=== PATIENT | male | born 1985 ===

== ENCOUNTER 2020-11-02 14:25 | Outpatient (REF) | payer OTHER, SELFPAY | END 2020-11-02 14:26 | disposition home or self-care (01) | LOC: HO.LAB 14:25 | PROVIDERS: Visit Provider Internal Medicine | DX: Z20.828 Contact with and (suspected) exposure to other viral communicable diseases (principal) | CPT/HCPCS: C9803; U0003 ==

== ENCOUNTER 2021-03-30 09:42 | Emergency (ER) | payer MEDICAID, SELFPAY ==
[2021-03-30 09:55] VITALS: BP 127/94; PULSE 97; RESP 16; TEMP 36.7; O2SAT 97; BMI 34.3
--- NOTE | 2021-03-30 10:23 | ED.WOUNDLAC ---
HPI - Wound/Laceration General Chief Complaint: Wound/Laceration <BRIGIDO Dowling Last Filed: 03/30/21 10:29> Stated Complaint: TOENAIL INJ <BRIGIDO Dowling Last Filed: 03/30/21 10:29> Time Seen by Provider: 03/30/21 10:23 <BRIGIDO Dowling Last Filed: 03/30/21 10:29> Source: patient <BRIGIDO Dowling Last Filed: 03/30/21 10:29> Mode of arrival: ambulatory <BRIGIDO Dowling Last Filed: 03/30/21 10:29> History of Present Illness HPI narrative: 35-year-old male with no significant past medical history presents to the ED complaining of right great toe pain s/p trimming ingrown toenail on Monday. States it is painful to wear shoes/sneakers. Denies fever, chills, numbness, tingling, drainage from area, erythema <BRIGIDO Dowling Last Filed: 03/30/21 10:29> Onset (ago): day(s) <BRIGIDO Dowling Last Filed: 03/30/21 10:29> Related Data Allergies/Adverse Reactions: Allergies Allergy/AdvReac Type Severity Reaction Status Date / Time No Known Allergies Allergy Unverified 07/30/20 18:25 <BRIGIDO Dowling Last Filed: 03/30/21 10:29> Review of Systems Review of Systems: Constitutional: No Fever, No Chillsn Musculoskeletal: No joint pain, No Myalgias, No Joint Swelling Skin: + Skin Lesions, No rash Neuro: No Weakness, No Numbness, No Paresthesias <BRIGIDO Dowling Last Filed: 03/30/21 10:29> Yes all other systems are reviewed and are negative <BRIGIDO Dowling Last Filed: 03/30/21 10:29> [facility] Past Medical History Attestation statement: The following information was validated with the patient. <BRIGIDO Dowling Last Filed: 03/30/21 10:29> Medical History: Medical History (Updated 03/31/21 @ 00:01 by Carolina Ashton) No known health problems <BRIGIDO Dowling - Last Filed: 03/30/21 10:29> Social History Social History: Social History Smoked in Last 30 Days: No Use of substances other than those prescribed or required for medical reasons: No Advance Directives: No Advance Directives Information Provided: No <BRIGIDO Dowling - Last Filed: 03/30/21 10:29> Physical Exam Vital Signs: Vital Signs: Last Vital Signs Temp 98.1 F 03/30/21 09:55 Pulse 97 03/30/21 09:55 Resp 16 03/30/21 09:55 BP 127/94 H 03/30/21 09:55 Pulse Ox 97 03/30/21 09:55 Body Mass Index 34.3 <BRIGIDO Dowling - Last Filed: 03/30/21 10:29> Vital Signs: Last Vital Signs Temp 98.1 F 03/30/21 09:55 Pulse 97 03/30/21 09:55 Resp 16 03/30/21 09:55 BP 127/94 H 03/30/21 09:55 Pulse Ox 97 03/30/21 09:55 Body Mass Index 34.3 <Fabio Gudino MD - Last Filed: 04/23/21 15:36> Const: General: cooperative, healthy appearing and comfortable <BRIGIDO Dowling - Last Filed: 03/30/21 10:29> Orientation/consciousness: patient oriented x3 <BRIGIDO Dowling - Last Filed: 03/30/21 10:29> Limitations: no limitations <BRIGIDO Dowling - Last Filed: 03/30/21 10:29> HENMT: Head: Yes normal to inspection <BRIGIDO Dowling - Last Filed: 03/30/21 10:29> Ears: hearing grossly normal bilaterally <BRIGIDO Dowling - Last Filed: 03/30/21 10:29> General nose exam: Normal external nose present <BRIGIDO Dowling - Last Filed: 03/30/21 10:29> Face and sinus: Yes normal facial exam <BRIGIDO Dowling - Last Filed: 03/30/21 10:29> Eyes: General: appearance normal, both eyes and all related structures <BRIGIDO Dowling - Last Filed: 05/18/21 10:29> EOM: EOMs intact bilaterally <BRIGIDO Dowling - Last Filed: 03/30/21 10:29> Neck: Neck: Yes normal visual inspection <BRIGIDO Dowling - Last Filed: 03/30/21 10:29> Resp: Effort & Inspection: normal respiratory effort <BRIGIDO Dowling - Last Filed: 03/30/21 10:29> Cardio: Rate: regular rate <BRIGIDO Dowling - Last Filed: 03/30/21 10:29> Heart sounds: S1 normal heart sound present and S2 normal heart sound present <BRIGIDO Dowling - Last Filed: 03/30/21 10:29> Peripheral pulses: dorsalis pedis present <BRIGIDO Dowling - Last Filed: 03/30/21 10:29> Skin: Rashes: no rashes <BRIGIDO Dowling - Last Filed: 03/30/21 10:29> Neuro: General: patient oriented x3 <BRIGIDO Dowling - Last Filed: 03/30/21 10:29> Gait exam (Neuro): Normal gait present <BIRGIDO Dowling - Last Filed: 03/30/21 10:29> Extrem: Other: Right great toe with partially removed toenail. Mild swelling. No erythema, no fluctuance/induration, no streaking. +ttp. FROM/NV intact <BRIGIDO Dowling - Last Filed: 03/30/21 10:29> Course Course Course Narrative: I have reviewed the chart <Fabio Gudino MD - Last Filed: 04/23/21 15:36> MDM - Wound/Laceration MDM Narrative Medical decision making narrative: On exam VSS, NAD/well-appearing, physical exam consistent with partially removed toenail, no evidence of active infection. Discussed with patient wound protection/wearing open-toed shoes. He is requesting work no due to necessity wearing sneakers. <BRIGIDO Dowling - Last Filed: 03/30/21 10:29> Discharge Plan Discharge Clinical Impression: Ingrowing toenail <BRIGIDO Dowling Last Filed: 03/30/21 10:29> Patient Disposition: Home, Self-Care <BRIGIDO Dowling - Last Filed: 03/30/21 10:29> Instructions: Partial Nail Avulsion for Ingrown Nail (DC) <BRIGIDO Dowling - Last Filed: 03/30/21 10:29> Additional Instructions: Protect your toe from damage/infection. Wear open-toed shoes. Apply bacitracin or Neosporin at. If area begins look infected, is red, begins to pass or have drainage or you have fever return to the ED immediately. 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 Use zapatos abiertos. Aplique bacitracina o Neosporin en. Si el ?lizzeth comienza a verse infectada, est? enrojecida, comienza a pasar o tiene secreci?n o si tiene fiebre, regrese al servicio de urgencias de inmediato. Deber?as un pod?logo <BRIGIDO Dowling - Last Filed: 03/30/21 10:29> Referrals: Jose J Bess [Physician] - 1 week <BRIGIDO Dowling - Last Filed: 03/30/21 10:29> Stand Alone Forms: Work/School Release <BRIGIDO Dowling - Last Filed: 03/30/21 10:29> Interventions: ED Discharge Assessment Last Done: 03/30/21 10:50 <BRIGIDO Dowling - Last Filed: 03/30/21 10:29> Discharge Date/Time: 03/30/21 10:51 <BRIGIDO Dowling - Last Filed: 03/30/21 10:29>
== END 2021-03-30 10:51 | disposition home or self-care (01) ==
PROVIDERS: Emergency Provider Emergency Medicine
DX: L60.0 Ingrowing nail (principal); M79.674 Pain in right toe(s)
CPT/HCPCS: 99283

== ENCOUNTER 2021-06-15 06:05 | Emergency (ER) | payer MEDICAID, SELFPAY ==
[2021-06-15 06:27] VITALS: BP 116/74; PULSE 59; RESP 16; TEMP 36.6; O2SAT 96; BMI 36.0
--- NOTE | 2021-06-15 06:38 | ED.EYEPROB ---
HPI - Eye Problem General Chief complaint: Eye Problems Stated complaint: eye issue Time Seen by Provider: 06/15/21 06:38 Source: patient Mode of arrival: ambulatory Limitations: no limitations History of Present Illness chief complaint: eye redness Onset (ago): day(s) (2) Onset description: gradual Duration: constant Location: right eye and left eye Eye Symptoms: redness, itching and discharge Place: home Mechanism: none Severity: moderate If Pain, Quality: other Associated symptoms: none Treatments Prior to Arrival: none Related Data Previous Rx's Medication Instructions Recorded erythromycin 5 mg/gram (0.5 %) eye 0.5 inch OPHTHALMIC (EYE) BID 7 06/15/21 ointment Days #3.5 g Allergies Allergy/AdvReac Type Severity Reaction Status Date / Time No Known Allergies Allergy Unverified 07/30/20 18:25 Review of Systems Review of Systems: Constitutional : No Fever, No Chills, HEENT: red eyes, drainage from eyes Cardiovascular : No Chest Pain, No SOB Respiratory : No Dyspnea Gastrointestinal : No abdominal pain Musculoskeletal : No Joint Swelling Skin : No rash, no skin laceration Neuro : No Weakness, No Numbness PMFSH Past Medical History Attestation statement: The following information was validated with the patient. Medical History No known health problems Social History Social History (Updated 06/15/21 @ 07:03 by Elena Wilkins DO) Patient Tobacco Use Status: Never used Tobacco Advance Directives: No Physical Exam Vital Signs: Vital Signs: Last Vital Signs Temp 97.9 F 06/15/21 06:27 Pulse 59 06/15/21 06:27 Resp 16 06/15/21 06:27 BP 116/74 06/15/21 06:27 Pulse Ox 96 06/15/21 06:27 Body Mass Index 36.0 Appearance: Alert. Oriented X3. No acute distress. Eyes: Pupils equal, round and reactive to light. injected conjunctiva with yellow dranaige, no change in vision ENT: Pharynx normal. Neck: Normal inspection. Neck supple. CVS: Normal heart rate and rhythm. Pulses normal. Respiratory: No respiratory distress. Breath sounds normal. Abdomen: Soft and nontender. Skin: Skin warm and dry. Normal skin color. Normal skin turgor. Extremities: No lower extremity edema. No calf ttp Neuro: Oriented X 3. No motor deficit. No sensory deficit. MDM - Eye Problem MDM Narrative Medical decision making narrative: 35 yo male otherwise healthy here with red eyes, drainage, no change in vision no contact lens will treat for bacterial conjunctivitis Discharge Plan Discharge Clinical Impression: Bacterial conjunctivitis Patient Disposition: Home, Self-Care Instructions: Conjunctivitis (ED) Additional Instructions: return to ED for any worsening symptoms or concerns Prescriptions: New erythromycin 5 mg/gram (0.5 %) ointment 0.5 inch ophthalmic (eye) BID 7 Days Qty: 3.5 RF: 0 Referrals: Physician,None [Primary Care Provider] - 2 days (if not better) Stand Alone Forms: Work/School Release
[2021-06-15] MEDS: Erythromycin Base 0.5% Oph Oin 1 GM TUBE 1 CM EYE-BOTH (07:08)
== END 2021-06-15 07:09 | disposition home or self-care (01) ==
PROVIDERS: Emergency Provider Emergency Medicine
DX: H10.12 Acute atopic conjunctivitis, left eye (principal); H57.12 Ocular pain, left eye
CPT/HCPCS: 99282; 99283

== ENCOUNTER 2021-11-11 12:18 | Outpatient (REF) | payer MEDICAID, SELFPAY | END 2021-11-11 12:19 | disposition home or self-care (01) | LOC: HO.LAB 12:18 | PROVIDERS: Visit Provider Internal Medicine | DX: Z13.89 Encounter for screening for other disorder (principal) ==

== ENCOUNTER 2021-11-12 08:28 | Outpatient (REF) | payer MEDICAID, SELFPAY ==
[2021-11-12 09:43] LABS: Binax Internal Control QC Valid; Binax Lot number: 9864; Binax Now Covid-19 Ag Negative (Negative)
== END 2021-11-12 08:29 | disposition home or self-care (01) ==
LOC: HO.LAB 08:28
PROVIDERS: Visit Provider Internal Medicine
DX: Z20.822 Contact with and (suspected) exposure to COVID-19 (principal)
CPT/HCPCS: 36415; C9803

== ENCOUNTER 2021-11-18 10:58 | Emergency (ER) | payer MEDICAID, SELFPAY ==
--- NOTE | ~2021-11-18 | XR_ITS ---
EXAMINATION: XR CHEST CLINICAL INFORMATION: Cough and pain COMPARISON: None TECHNIQUE: Frontal view of the chest was obtained. FINDINGS: The lungs are hypoexpanded but clear of acute process. The heart size and pulmonary vascularity is normal. There is mild dextroscoliosis mid dorsal spine. No lytic process. XR/XR chest 1V IMPRESSION: Hypoexpanded lungs are clear.
[2021-11-18 11:07] VITALS: BP 141/94; PULSE 88; RESP 19; TEMP 36.6; O2SAT 97; BMI 37.8
--- NOTE | 2021-11-18 11:26 | ED.GENADULT ---
HPI - General Adult General Chief complaint: Upper Respiratory Symptoms Stated complaint: infection in lungs SOB chest pain Time Seen by Provider: 11/18/21 11:25 Source: patient Limitations: no limitations History of Present Illness HPI narrative: Patient presents to the ER with complaints of cough congestion headache body aches x1 week. Patient's recent COVID-19 test was negative in the past. Pain in the chest increased with coughing. Cough is nonproductive. Positive COVID-19 exposure at work. Patient is fully vaccinated for COVID-19. Patient has not been boosted. Patient states slight cough and chest wall pain. Symptoms are [id number]. Patient denies tobacco history takes no prescribed medication has been taking [id number] Motrin for headache at home. Related Data Previous Rx's Medication Instructions Recorded erythromycin 5 mg/gram (0.5 %) eye 0.5 inch OPHTHALMIC (EYE) BID 7 06/15/21 ointment Days #3.5 g albuterol sulfate 90 mcg/actuation 2 puff INHALATION Q6H PRN #6.7 g 11/18/21 aerosol inhaler (ProAir HFA) Allergies Allergy/AdvReac Type Severity Reaction Status Date / Time No Known Allergies Allergy Unverified 07/30/20 18:25 Review of Systems Constitutional: Constitutional: Reports body ache(s), Denies chills, Reports fatigue, Denies fever(s), Reports headache(s) and Denies weakness ENT: Reports headache(s), Reports nasal congestion and Reports sore throat Cardiovascular: Cardiovascular: Reports chest pain and Reports dyspnea Respiratory: Respiratory: Reports chest congestion, Reports cough, Reports pain with cough and Reports dyspnea Gastrointestinal: Gastrointestinal: Denies diarrhea, Denies nausea and Denies vomiting Musculoskeletal: Musculoskeletal: Denies back pain Neurologic: Reports headache(s) and Denies weakness Endocrine: Endocrine: Reports fatigue PMFSH Past Medical History Attestation statement: The following information was validated with the patient. Medical History No known health problems Social History Social History Patient Tobacco Use Status: Never used Tobacco Advance Directives: No Advance Directives Information Provided: No Physical Exam Vital Signs: Vital Signs: Last Vital Signs Temp 98 F 11/18/21 11:07 Pulse 88 11/18/21 11:07 Resp 19 11/18/21 11:07 BP 141/94 H 11/18/21 11:07 Pulse Ox 97 11/18/21 11:07 BMI result Body Mass Index 37.8 vital signs have been reviewed as normal and appeared to be correct. Blood pressure normal. Heart rate normal. Respiration rate normal. Temperature normal. Oxygen saturation normal. Appearance: Alert. Oriented X3. No acute distress. Head: Normal external exam. Normocephalic. Atraumatic. Eyes: PERRLA. EOMI. Conjunctiva and sclera normal. Eyelids normal. ENT: Pharynx normal. Uvula midline. Moist mucous membranes. No evidence of peritonsillar abscess Neck: Soft full range of motion CVS: Heart regular rate and rhythm no murmurs and rubs Respiratory: Breath sounds are clear to auscultation bilaterally. No accessory muscle use noted. Positive chest wall tenderness Back: Full range of motion noted. Skin: Skin warm and dry. Normal skin color. No rashes no ecchymosis Extremities: No lower extremity edema. Bilateral calves nontender Neuro: Oriented X 3. No motor deficit. No sensory deficit. No focal deficit Course Course Course Narrative: Viral URI COVID-19 Pneumonia Acute bronchitis Pharyngitis Patient's O2 sat is 97% on room air chest x-ray COVID-19 swab pending Medical Decision Making Lab Data Labs: Lab Results 11/18/21 Range/Units 11:22 COVID-19 (DONNA) Negative (Negative) COVID-19 Clin Com See Note Imaging Data Chest x-ray: Radiologist's impression: [place] [id number] XRay Report Signed Patient: Eddie Lee MR#: [id number] : 1985 Acct:[id number] Age/Sex: 35 / M ADM Date: 11/18/21 Loc: HO.ED Attending Dr: Ordering Physician: Eddie Kruse Date of Service: 11/18/21 Procedure(s): XR chest 1V Accession Number(s): [id number] cc: Eddie Kruse ~ EXAMINATION: XR CHEST CLINICAL INFORMATION: Cough and pain COMPARISON: None TECHNIQUE: Frontal view of the chest was obtained. FINDINGS: The lungs are hypoexpanded but clear of acute process. The heart size and pulmonary vascularity is normal. There is mild dextroscoliosis mid dorsal spine. No lytic process. XR/XR chest 1V IMPRESSION: Hypoexpanded lungs are clear. ? Dictated By: Galo Cheng MD Signed By: <Electronically signed by Galo Cheng MD in OV> 11/18/21 1150 DD/ 1140 TD/TT:? 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: [facility] Discharge Plan Discharge Clinical Impression: Upper respiratory infection Qualifiers: URI type: unspecified viral URI Qualified Code(s): J06.9 - Acute upper respiratory infection, unspecified Patient Disposition: Home, Self-Care Instructions: Upper Respiratory Infection (ED) Additional Instructions: COVID-19 test is negative Chest x-ray is negative Your oxygenation levels normal Prescriptions: New albuterol sulfate [ProAir HFA] 90 mcg/actuation HFA aerosol inhaler 2 puff inhalation Q6H PRN (Reason: shortness of breath or wheezing) Qty: 6.7 RF: 0 No Action erythromycin 5 mg/gram (0.5 %) ointment 0.5 inch ophthalmic (eye) BID 7 Days Qty: 3.5 RF: 0 Stand Alone Forms: Work/School Release Interventions: ED Discharge Assessment Last Done: 11/18/21 12:25 Discharge Date/Time: 11/18/21 12:30 Print Language: Faroese
[2021-11-18 11:50] LABS: COVID-19 Test Negative (Negative)
== END 2021-11-18 12:30 | disposition home or self-care (01) ==
PROVIDERS: Physician Assistant; Emergency Provider Emergency Medicine
DX: J06.9 Acute upper respiratory infection, unspecified (principal); Z20.822 Contact with and (suspected) exposure to COVID-19
CPT/HCPCS: 71045; 87635; 99283

== ENCOUNTER 2022-07-25 06:47 | Emergency (ER) | payer MEDICAID, SELFPAY ==
--- NOTE | ~2022-07-25 | XR_ITS ---
EXAMINATION: XR THORACIC SPINE CLINICAL INFORMATION: Mid back pain with history of back injuries COMPARISON: 08/27/2019 TECHNIQUE: AP, lateral, and swimmer's views of the thoracic spine. FINDINGS: S-shaped thoracolumbar rotoscoliosis, worsened since CT 08/27/2019. Normal sagittal alignment. Mild multilevel degenerative disc disease manifested by endplate sclerosis and anterior osteophytosis. Evaluation of the vertebral bodies is limited by body habitus but no gross compression fracture is seen. XR/XR thoracic spine 2V IMPRESSION: Degenerative changes as described above. No acute vertebral body compression fracture. If there is high suspicion for acute traumatic injury, consider cross-sectional imaging.
[2022-07-25 07:15] VITALS: BP 117/81; PULSE 74; RESP 16; TEMP 36.6; O2SAT 98; BMI 36.0
--- NOTE | 2022-07-25 08:50 | ED_ITS ---
HPI - Back Pain/Injury General Chief Complaint: Back Pain/Injury Stated Complaint: back pain Time Seen by Provider: 07/25/22 08:37 Source: patient, family () and certified court interpreter Mode of arrival: ambulatory Limitations: no limitations History of Present Illness HPI Narrative: 36 year old male Yakut-speaking came in for evaluation of mid back pain. Patient with history of work-related back injury 8 years ago since then patient has been getting midback pain, described pain as dull aching pain in the midback on and off for the past 8 years exacerbated mostly by physical activity, NSAIDs help patient's pain but he cannot take it because it irritated stomach. Patient work where he must left and bend. Patient otherwise declined fever or chills, no urinary or stool incontinence. Related Data Previous Rx's Medication Instructions Recorded erythromycin 5 mg/gram (0.5 %) eye 0.5 inch ophthalmic (eye) BID 7 06/15/21 ointment days #3.5 grams albuterol sulfate 90 mcg/actuation 2 puff inhalation Q6H PRN 11/18/21 aerosol inhaler (ProAir HFA) shortness of breath or wheezing #6.7 grams Allergies Allergy/AdvReac Type Severity Reaction Status Date / Time No Known Allergies Allergy Unverified 07/30/20 18:25 Review of Systems Review of Systems: All other systems are reviewed and are negative Constitutional: Reports as per HPI and Reports no additional constitutional complaints Eyes: Reports as per HPI and Reports no additional eye complaints Reports system reviewed and no additional complaints, except as documented Cardiovascular: Reports as per HPI and Reports no additional cardiovascular complaints Respiratory: Reports as per HPI and Reports no additional respiratory complaints Gastrointestinal: Reports as per HPI and Reports no additional gastrointestinal complaints Genitourinary: Reports no additional female genitourinary complaints Musculoskeletal: Reports no additional musculoskeletal complaints Skin/Breast: Reports system reviewed and no additional complaints, except as docu Psychiatric: Reports no additional psychiatric complaints Endocrine: Reports no additional endocrine complaints Hematologic/Lymphatic: Reports no additional hematologic/lymphatic complaints Allergic/Immunologic: Reports no additional allergic/immunologic complaints Reports system reviewed and no additional complaints, except as documented and Reports Abnormal speech present PMFSH Past Medical History Medical History No known health problems Social History Social History Patient Tobacco Use Status: Never used Tobacco Advance Directives: No Advance Directives Information Provided: No Physical Exam 2 Vital Signs: Vital Signs: Last Vital Signs Temp 98 F 07/25/22 07:15 Pulse 74 07/25/22 07:15 Resp 16 07/25/22 07:15 BP 117/81 07/25/22 07:15 Pulse Ox 98 07/25/22 07:15 O2 Del Method 07/25/22 07:15 BMI result Body Mass Index 36.0 Vital signs have been reviewed as appeared to be correct. Blood pressure normal. Heart rate normal. Respiration rate normal. Temperature normal. Oxygen saturation normal. Appearance: Alert. Oriented X3. No acute distress. Head: Normal external exam. Normocephalic. Atraumatic. No Cason signs noted. No raccoon eyes noted Eyes: PERRLA. EOMI. Conjunctiva and sclera normal. Eyelids normal. ENT: TM's Normal. Pharynx normal. Uvula midline. Moist mucous membranes. No trismus noted. No drooling noted. No muffled voice noted. Neck: Normal inspection. Neck supple. FROM. No adenopathy. Thyroid Normal. No meningeal signs. No neck mass noted. CVS: Normal heart rate and rhythm. Heart sound normal. No murmurs noted. Pulses normal throughout. Respiratory: No respiratory distress. Painless inspiration. Breath sounds normal. No wheezes/rales/rhonchi noted. Chest nontender. No accessory muscle usage noted or decreased air movement noted. Abdomen: Soft and nontender. Bowel sounds normal in all 4 quadrants. No distention noted. No organomegaly noted. No visible injury noted. Back: No CVA tenderness. Full range of motion noted. No reproducible point of tenderness on the spine. Skin: Skin warm and dry. Normal skin color. Normal skin turgor. No rashes/lesions/lacerations noted. Extremities: No lower extremity edema. Extremities exhibit normal range of motion. Extremities nontender. Neuro: Oriented X 3. Cranial nerve exam: II-XII are grossly intact No motor deficit. No sensory deficit. Reflexes normal. Course Course Course Narrative: 36-year-old male with old work related back injury came in with acute on chronic back pain, x-ray showing no acute injury, patient feels better with oxycodone. As discussed with the patient to rest for 3-4 days and refrain from bending or heavy lifting, patient need to follow up with PCP to consider long-term plan. MDM - Back Pain/Injury Imaging Data Thoracic x-ray: Attestation: I personally reviewed and interpreted this imaging study as follows: Radiologist's impression: Degenerative changes as described above. No acute vertebral body compression fracture. If there is high suspicion for acute traumatic injury, consider cross-sectional imaging.? Discharge Plan Discharge Clinical Impression: Thoracic back pain Patient Disposition: Home, Self-Care Instructions: Thoracic Pain (ED) Additional Instructions: Take Tylenol ([id number] medication) 500 mg tablet every 6 hours if needed for pain. avoid heavy lifting, bending, pushing. Apply heating pad to the tender area. Prescriptions: No Action erythromycin 5 mg/gram (0.5 %) ointment 0.5 inch ophthalmic (eye) BID 7 Days Qty: 3.5 0RF albuterol sulfate [ProAir HFA] 90 mcg/actuation HFA aerosol inhaler 2 puff inhalation Q6H PRN (Reason: shortness of breath or wheezing) Qty: 6.7 0RF Referrals: [facility] [Primary Care Provider] - Stand Alone Forms: Work/School Release
[2022-07-25] MEDS: oxyCODONE HCl Immed Release 5 MG TABLET PO (08:59)
== END 2022-07-25 11:21 | disposition home or self-care (01) ==
PROVIDERS: Emergency Provider Emergency Medicine
DX: M54.6 Pain in thoracic spine (principal)
CPT/HCPCS: 72070; 99283

== ENCOUNTER 2023-06-04 14:33 | Emergency (ER) | payer OTHER, SELFPAY ==
[2023-06-04 14:56] VITALS: BP 138/88; PULSE 82; RESP 18; TEMP 36.8; O2SAT 94; BMI 36.9
--- NOTE | 2023-06-04 14:56 | ED_ITS ---
HPI - Back Pain/Injury General Chief Complaint: Back Pain/Injury Stated Complaint: back pain Time Seen by Provider: 06/04/23 18:39 Source: patient Mode of arrival: ambulatory Limitations: no limitations History of Present Illness HPI Narrative: Patient is a 37-year-old male presents emergency department for evaluation of acute on chronic pain to the mid/lower back. States that he was moving a washing machine at 10:00 resulting in exacerbation of pain. Denies recent precipitating injury, fevers, chills, burning with micturition, urinary frequency/urgency/hesitancy, bladder or bowel dysfunction, numbness or tingling of the arms, perineum or bilateral legs. Denies any recent surgical procedures, any known immune compromising conditions, personal history of cancer, or IV drug usage. MD elicited complaint: back pain Related Data Previous Rx's Medication Instructions Recorded erythromycin 5 mg/gram (0.5 %) eye 0.5 inch ophthalmic (eye) BID 7 06/15/21 ointment days #3.5 grams albuterol sulfate 90 mcg/actuation 2 puff inhalation Q6H PRN 11/18/21 aerosol inhaler (ProAir HFA) shortness of breath or wheezing #6.7 grams oxycodone 5 mg tablet 5 mg PO Q8H PRN pain #10 tabs 07/25/22 cyclobenzaprine 10 mg tablet 10 mg PO TID PRN muscle spasm #14 06/04/23 tabs ketorolac 10 mg tablet 10 mg PO TID PRN pain 5 days #15 06/04/23 tabs Allergies Allergy/AdvReac Type Severity Reaction Status Date / Time No Known Allergies Allergy Unverified 07/30/20 18:25 Review of Systems Review of Systems: Constitutional: No weight loss, fever, chills, weakness or fatigue. HEENT: No visual loss, blurred vision, double vision. No hearing loss, sneezing, congestion, runny nose or sore throat. Skin: No rash or itching. Cardiovascular: No chest pain, chest pressure or chest discomfort. No palpitations or pedal edema. Respiratory: No shortness of breath, cough or sputum production. Gastrointestinal: No anorexia, nausea, vomiting or diarrhea. No abdominal pain or blood in stool. Genitourinary: No burning micturition. No urinary frequency or incontinence. Neurologic: No headache, dizziness, syncope, unilateral weakness, ataxia, numbness or tingling in the extremities. No change in bowel or bladder control. Musculoskeletal: + Back pain as noted in HPI. No joint pain or stiffness. Hematologic: No bleeding or bruising. Lymphatics: No enlarged lymph nodes. Psychiatric:No depression or anxiety. Endocrine: No reports of sweating. No cold or heat intolerance. No polyuria or polydipsia. Yes all other systems are reviewed and are negative PMFSH Past Medical History Attestation statement: The following information was validated with the patient. Source: old records reviewed Medical History No known health problems Social History Social History Patient Tobacco Use Status: Never used Tobacco Advance Directives: No Advance Directives Information Provided: No Physical Exam Vital Signs: Vital Signs: Last Vital Signs Temp 98.2 F 06/04/23 14:56 Pulse 82 06/04/23 14:56 Resp 18 06/04/23 14:56 BP 138/88 06/04/23 14:56 Pulse Ox 94 06/04/23 14:56 O2 Del Method Room Air 06/04/23 14:56 BMI result Body Mass Index 36.9 Appearance: Alert.?Oriented to person, place and time. No acute distress.?Normal affect. Eyes: Pupils equal, round and reactive to light.? ENT: Pharynx normal.?? Neck: Normal inspection.? Neck supple.?? CVS: Heart sounds normal. Normal heart rate and rhythm.? Pulses normal; bilateral radial pulses 2+, bilateral posterior tibial/dorsalis pedis pulses 2+.? Respiratory: No respiratory distress.? Lung sounds clear to auscultation bilaterally?? Abdomen: Soft and non-tender. Normoactive bowel sounds. No pulsatile mass.?? Skin: Skin warm and dry.? Normal skin color.? Extremities: No lower extremity edema.? No calf ttp? Back: + mild paraspinal muscular tenderness from thoracic region to upper lumbar region. No CVA tenderness. No midline spinal tenderness, step-off's, or deformity. Full ROM intact in bilateral upper and lower extremities. No rashes, lesions, areas of induration or fluctuance, or signs of infection noted. Neuro: Moves all extremities spontaneously. Sensation to light touch intact bilaterally. No ataxia, gait normal and steady.. No focal neuro deficits. Medications Administered Discontinued Medications Generic Name Dose Route Start Last Admin Trade Name Jerry PRN Reason Stop Dose Admin Ketorolac Tromethamine 30 mg 06/04/23 14:59 06/04/23 15:04 Ketorolac Tromethamine 30 Mg/Ml Vial IM 06/04/23 15:00 30 mg ONCE ONE Administration Medical Decision Making Medical Decision Making [facility] Narrative: Patient is a 37-year-old male presents emergency department for evaluation of acute on chronic thoracic pain. He received injection during a medical examination with improvement in pain, though not complete resolution. There are no focal neurological deficits. Pain is most consistent with chronic degenerative changes in addition to muscular pain with injury today, although cannot completely exclude herniated disc. There is no midline spinal tenderness, step-off, deformity. Not consistent with spinal fracture, spinal infection, epidural abscess, AAA, epidural abscess, or dissection. No high risk past medical history including incontinence, fever, immunosuppression, recent surgery or lumbar puncture, coagulopathy, significant trauma, recent unintentional weight loss, pulsatile mass, history of cancer, history of TB, history of IV drug use that would warrant MRI or CT. Not consistent with pyelonephritis, urinary tract infection, renal calculi. On exam no concern for cauda equina syndrome. No imaging is currently indicated at this time. Plan for discharge home with prescription for ketorolac in cyclobenzaprine, advised rest, avoidance of heavy lifting or bending, ice/heat, and follow-up with primary care provider, and patient agreed with plan. Differential Diagnosis Differential Diagnoses: The differential diagnosis associated with the presentation includes (As noted above) External Record Review External record reviewed: Outpatient record Tests considered The following testing was considered but not selected: Considered CT imaging as noted above, however deferred Prescription Management I considered prescription management with: Pain Medication (Ketorolac and cyclobenzaprine) Discharge Plan Discharge Clinical Impression: Thoracic back pain Patient Disposition: Home, Self-Care Instructions: Thoracic Pain (ED) Additional Instructions: As discussed, take the Toradol 3 times daily as needed for pain. Do not take additional [id number] Advil, Motrin, Aleve, ibuprofen, aspirin while taking this medication. Additionally I have sent a prescription for cyclobenzaprine, which is a muscle relaxer to your pharmacy. This medication may make you drowsy. He should not drive, drink alcohol, work while taking this medication. Please contact your primary care provider to arrange for a follow-up visit for persistent symptoms. Return back to emergency department with any new or worsening symptoms or concerns. Vernell se mencion?, tome el Toradol 3 veces al d?a seg?n sea necesario para el dolor. No tome m?s Advil, Motrin, Aleve, ibuprofeno, aspirina de venta lavelle mientras lolis christiano medicamento. Adem?s, le he enviado shantel receta de ciclobenzaprina, que es un relajante muscular, a ma farmacia. Christiano medicamento puede causarle somnolencia. No debe conducir, beber alcohol, trabajar mientras lolis christiano medicamento. Comun?quese con ma proveedor de atenci?n primaria para programar shantel visita de seguimiento por s?ntomas persistentes. Regrese al departamento de emergencias con cualquier s?ntoma o inquietud nueva o que empeore. Prescriptions: New ketorolac 10 mg tablet 10 mg PO TID PRN (Reason: pain) 5 Days Qty: 15 0RF Rx Instructions: Received 1st dose intramuscularly in the emergency department and tolerated well. cyclobenzaprine 10 mg tablet 10 mg PO TID PRN (Reason: muscle spasm) Qty: 14 0RF No Action erythromycin 5 mg/gram (0.5 %) ointment 0.5 inch ophthalmic (eye) BID 7 Days Qty: 3.5 0RF oxycodone 5 mg tablet 5 mg PO Q8H PRN (Reason: pain) Qty: 10 0RF Rx Instructions: Partial Fill upon patient request. albuterol sulfate [ProAir HFA] 90 mcg/actuation HFA aerosol inhaler 2 puff inhalation Q6H PRN (Reason: shortness of breath or wheezing) Qty: 6.7 0RF Referrals: [facility] [Primary Care Provider] - Stand Alone Forms: Work/School Release Discharge Date/Time: 06/04/23 19:17
[2023-06-04] MEDS: Ketorolac Tromethamine 30 MG/ML VIAL IM (15:04)
== END 2023-06-04 19:17 | disposition home or self-care (01) ==
PROVIDERS: Emergency Provider Emergency Medicine
DX: M54.6 Pain in thoracic spine (principal)
CPT/HCPCS: 96372; 99283; 99284; J1885

== ENCOUNTER 2023-09-12 07:48 | Emergency (ER) | payer OTHER, SELFPAY ==
--- NOTE | ~2023-09-12 | CT_ITS ---
EXAMINATION: CT ABDOMEN AND PELVIS WITHOUT CONTRAST CLINICAL INFORMATION: Abdominal pain with vomiting. Rule out colitis. COMPARISON: None available. TECHNIQUE: Multidetector volumetric imaging was performed from the superior aspect of the liver through the pubic symphysis. Sagittal and coronal reformatted images were obtained on the technologist's workstation. This CT examination was performed using dose optimization techniques as appropriate, variously including the following: *Automated exposure control *Adjustment of mA and/or kV according to patient size (this includes techniques or standardized protocols for targeted exams where dose is matched to indication/reason for exam; i.e. extremities or head) *Use of iterative reconstruction technique DLP: 702 mGy-cm FINDINGS: LUNG BASES: The visualized lung bases are unremarkable. LIVER, GALLBLADDER, AND BILIARY TREE: The liver is normal in size, shape, and attenuation. No focal hepatic lesion or biliary ductal dilatation is present. The gallbladder is unremarkable with no evidence of radiopaque gallstones, gallbladder wall thickening, or obvious pericholecystic inflammatory changes. PANCREAS: Unremarkable. SPLEEN: Unremarkable. ADRENAL GLANDS: Unremarkable. KIDNEYS AND URETERS: The kidneys are normal in size, shape, and attenuation. No hydronephrosis, hydroureter, or calculi seen. No perinephric stranding. BLADDER: Unremarkable. GASTROINTESTINAL TRACT: There is scattered stool, diverticuli and gas seen throughout the colon without distention. The small bowel loops are normal caliber. Appendix is normal caliber. ABDOMINAL WALL: No significant hernia is appreciated. LYMPH NODES: Normal. VASCULAR: Unremarkable. PELVIC VISCERA: Unremarkable. OSSEOUS STRUCTURES: There is mild S-shaped scoliosis of lower dorsal lumbar spine.. CT/CT abdomen pelvis wo IV con IMPRESSION: 1. No acute intra-abdominal process seen. 2. Mild constipation. Fleischner guidelines were followed.
[2023-09-12 07:59] VITALS: BP 138/84; PULSE 68; RESP 16; TEMP 36.6; O2SAT 97; BMI 35.4
--- NOTE | 2023-09-12 08:08 | ED.NAVMDI ---
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 Symptoms started since yesterday few hours after eating [place] food, no other sick contacts, no recent travel, no recent use of antibiotics, symptoms started with nausea and nonbloody vomiting followed by epigastric /left side abdominal pain and nonbloody watery diarrhea. Last vomit and diarrhea was yesterday. Patient still complaining abdominal pain mostly in the epigastric area and the left lower quadrant. No fever, no chills, no previous intra-abdominal surgery. Related Data Previous Rx's Medication Instructions Recorded erythromycin 5 mg/gram (0.5 %) eye 0.5 inch ophthalmic (eye) BID 7 06/15/21 ointment days #3.5 grams albuterol sulfate 90 mcg/actuation 2 puff inhalation Q6H PRN 11/18/21 aerosol inhaler (ProAir HFA) shortness of breath or wheezing #6.7 grams oxycodone 5 mg tablet 5 mg PO Q8H PRN pain #10 tabs 07/25/22 cyclobenzaprine 10 mg tablet 10 mg PO TID PRN muscle spasm #14 06/04/23 tabs ketorolac 10 mg tablet 10 mg PO TID PRN pain 5 days #15 06/04/23 tabs omeprazole 40 mg capsule,delayed 40 mg PO DAILY #15 caps 09/12/23 release Allergies Allergy/AdvReac Type Severity Reaction Status Date / Time No Known Allergies Allergy Unverified 07/30/20 18:25 Review of Systems Review of Systems: All other systems are reviewed and are negative Constitutional: Reports as per HPI and Reports no additional constitutional complaints Eyes: Reports as per HPI and Reports no additional eye complaints Reports system reviewed and no additional complaints, except as documented Cardiovascular: Reports as per HPI and Reports no additional cardiovascular complaints Respiratory: Reports as per HPI and Reports no additional respiratory complaints Gastrointestinal: Reports as per HPI and Reports no additional gastrointestinal complaints Genitourinary: Reports no additional female genitourinary complaints Musculoskeletal: Reports no additional musculoskeletal complaints Skin/Breast: Reports system reviewed and no additional complaints, except as docu Psychiatric: Reports no additional psychiatric complaints Endocrine: Reports no additional endocrine complaints Hematologic/Lymphatic: Reports no additional hematologic/lymphatic complaints Allergic/Immunologic: Reports no additional allergic/immunologic complaints Reports system reviewed and no additional complaints, except as documented and Reports Abnormal speech present [facility] Past Medical History Medical History No known health problems Social History Social History Patient Tobacco Use Status: Never used Tobacco Smoked in Last 30 Days: No Use of substances other than those prescribed or required for medical reasons: No Advance Directives: No Advance Directives Information Provided: No Physical Exam Vital Signs: Vital Signs: Last Vital Signs Temp 97.8 F 09/12/23 07:59 Pulse 61 09/12/23 10:08 Resp 16 09/12/23 10:08 BP 127/77 09/12/23 10:08 Pulse Ox 100 09/12/23 10:08 O2 Del Method Room Air 09/12/23 10:08 BMI result Body Mass Index 35.4 Vital signs have been reviewed and appear to be correct. Blood pressure elevated. Heart rate normal. Respiratory rate normal. Temperature normal. Oxygen saturation normal. Appearance: Alert. Oriented X3. No acute distress. Head: Normal external exam. Normocephalic. Atraumatic. No Cason signs noted. No raccoon eyes noted Eyes: PERRLA. EOMI. Conjunctiva and sclera normal. Eyelids normal. ENT: TM's Normal. Pharynx normal. Uvula midline. Moist mucous membranes. No trismus noted. No drooling noted. No muffled voice noted. Neck: Normal inspection. Neck supple. FROM. No adenopathy. Thyroid Normal. No meningeal signs. No neck mass noted. CVS: Normal heart rate and rhythm. Heart sound normal. No murmurs noted. Pulses normal throughout. Respiratory: No respiratory distress. Painless inspiration. Breath sounds normal. No wheezes/rales/rhonchi noted. Chest nontender. No accessory muscle usage noted or decreased air movement noted. Abdomen: Soft and nontender. Bowel sounds normal in all 4 quadrants. No distention noted. No organomegaly noted. No visible injury noted. Back: No CVA tenderness. Full range of motion noted. Skin: Skin warm and dry. Normal skin color. Normal skin turgor. No rashes/lesions/lacerations noted. Extremities: No lower extremity edema. Extremities exhibit normal range of motion. Extremities nontender. Neuro: Oriented X 3. Cranial nerve exam: II-XII are grossly intact No motor deficit. No sensory deficit. Reflexes normal. Course Reevaluation(s) Reevaluation #1: Epigastric pain, unremarkable labs, unremarkable CT of the abdomen pelvis, able to tolerate p.o. intake. Start the patient on Prilosec and follow up with GI as an outpatient. Time: 10:25 Medications Administered Discontinued Medications Generic Name Dose Route Start Last Admin Trade Name Freq PRN Reason Stop Dose Admin Al Hydroxide/Mg Hydroxide 30 ml 09/12/23 08:10 09/12/23 08:49 Magnesium Hydrox/Alum Hydrox 30 Ml Oral.Susp PO 09/12/23 08:11 30 ml ONCE ONE Administration Famotidine 20 mg 09/12/23 08:10 09/12/23 08:49 Famotidine/Pf 20 Mg/2 Ml Vial IVPUSH 09/12/23 08:11 20 mg ONCE ONE Administration Sodium Chloride 1,000 mls @ 999 mls/hr 09/12/23 08:10 09/12/23 08:47 Ns IV 09/12/23 09:10 999 mls/hr .Q1H1M ONE Administration Loperamide HCl 2 mg 09/12/23 08:10 09/12/23 08:48 Loperamide Hcl 2 Mg Capsule PO 09/12/23 08:11 2 mg ONCE ONE Administration Ondansetron HCl 4 mg 09/12/23 08:10 09/12/23 08:49 Ondansetron Hcl 4 Mg/2 Ml Vial IVPUSH 09/12/23 08:11 4 mg ONCE ONE Administration Medical Decision Making Differential Diagnosis Differential Diagnoses: The differential diagnosis associated with the presentation includes ( Early appendicitis, colitis, gastroenteritis, dehydration, electrolyte abnormality, severe anemia, UTI , pyelonephritis.) Admission/Observation Consideration of admission/observation: Escalation of care including admission/observation considered Lab Data MDM Lab Attestation statement: I reviewed the patient's lab results. 09/12/23 08:20 09/12/23 08:20 Labs: Lab Results 09/12/23 Range/Units 08:20 WBC 6.7 (4.8-10.8) X10*3/uL RBC 5.11 (4.60-5.80) X10*6/uL Hgb 14.6 (14.0-18.0) g/dl Hct 44.2 (42.0-52.0) % MCV 86.5 (80.0-98.0) fL MCH 28.6 (27.0-33.0) pg MCHC 33.0 (31.0-36.0) g/dl RDW 13.2 (11.0-16.0) % Plt Count 266 (160-400) X10*3/uL MPV 11.1 (9.4-12.4) fL Immature Gran % (Auto) 0.4 (0.0-0.4) % Neut % (Auto) 61.1 (45-73) % Lymph % (Auto) 30.8 (20-40) % [place] % (Auto) 6.4 (2-11) % Eos % (Auto) 0.7 (0-4) % Baso % (Auto) 0.6 (0-2) % Lymph # (Auto) 2.1 (1.2-4.9) X10*3/uL [place] # (Auto) 0.4 (0.1-1.2) X10*3/uL Eos # (Auto) 0.1 (0.0-0.4) X10*3/uL Baso # (Auto) 0.0 (0.0-0.2) X10*3/uL Abs Immat Gran (auto) 0.03 (0.00-0.03) X10*3/uL Absolute Neuts (auto) 4.1 (2.0-8.3) x10*3/uL Absolute Nucleated RBC 0.000 (0.0-0.012) X10*3/uL Nucleated RBC % (auto) 0.0 (0.0-0.2) /100WBC Sodium 139 (135-145) mmol/L Potassium 4.3 (3.3-5.1) mmol/L Chloride 108 (96-108) mmol/L Carbon Dioxide 24 (22-29) mmol/L Anion Gap 11 L (12-20) BUN 13 (9-16) mg/dL Creatinine 0.89 (0.5-1.4) mg/dL Estim Creat Clear Calc 118.4 Estimated GFR > 60 Random Glucose 102 (60-115) mg/dL Calcium 9.6 (8.4-10.2) mg/dL Lipase 52 (8-78) U/L Independent Interpretation I performed an independent interpretation of an: CT Scan ( Abdomen and pelvis: No acute intra-abdominal process.) Radiology Impression Discussion of test interpretation with radiology: I have reviewed the radiologist's reading. Discharge Plan Discharge Clinical Impression: Gastritis Qualifiers: Gastritis type: unspecified gastritis Chronicity: acute Gastritis bleeding: without bleeding Qualified Code(s): K29.00 - Acute gastritis without bleeding Patient Disposition: Home, Self-Care Instructions: Gastritis (ED) Prescriptions: New omeprazole 40 mg capsule,delayed release(DR/EC) 40 mg PO DAILY Qty: 15 0RF No Action erythromycin 5 mg/gram (0.5 %) ointment 0.5 inch ophthalmic (eye) BID 7 Days Qty: 3.5 0RF oxycodone 5 mg tablet 5 mg PO Q8H PRN (Reason: pain) Qty: 10 0RF Rx Instructions: Partial Fill upon patient request. albuterol sulfate [ProAir HFA] 90 mcg/actuation HFA aerosol inhaler 2 puff inhalation Q6H PRN (Reason: shortness of breath or wheezing) Qty: 6.7 0RF ketorolac 10 mg tablet 10 mg PO TID PRN (Reason: pain) 5 Days Qty: 15 0RF Rx Instructions: Received 1st dose intramuscularly in the emergency department and tolerated well. cyclobenzaprine 10 mg tablet 10 mg PO TID PRN (Reason: muscle spasm) Qty: 14 0RF Referrals: Nallely Quintero MD [Physician] - [facility] [Primary Care Provider] - Stand Alone Forms: Work/School Release
[2023-09-12 08:26] LABS: MANUAL DIFF FLAG NO
[2023-09-12 08:27] LABS: Basophils Percent Auto 0.6 % (0-2); Eosinophils Absolute Auto 0.1 X10*3/uL (0.0-0.4); Eosinophils Percent Auto 0.7 % (0-4); Hematocrit 44.2 % (42.0-52.0); Hemoglobin 14.6 g/dl (14.0-18.0); Imm Gran Abs Auto 0.03 X10*3/uL (0.00-0.03); Imm Gran Pct Auto 0.4 % (0.0-0.4); Lymphocytes Absolute Auto 2.1 X10*3/uL (1.2-4.9); Lymphocytes Percent Auto 30.8 % (20-40); Mean Corpuscular Hemoglobin 28.6 pg (27.0-33.0); Mean Corpuscular Volume 86.5 fL (80.0-98.0); Mean Platelet Volume 11.1 fL (9.4-12.4); Monocytes Absolute Auto 0.4 X10*3/uL (0.1-1.2); Monocytes Percent Auto 6.4 % (2-11); Neutrophils Absolute Auto 4.1 x10*3/uL (2.0-8.3); Neutrophils Percent Auto 61.1 % (45-73); Platelet Count 266 X10*3/uL (160-400); Red Blood Count 5.11 X10*6/uL (4.60-5.80); Red Cell Distribution Width 13.2 % (11.0-16.0); White Blood Count 6.7 X10*3/uL (4.8-10.8)
--- NOTE | 2023-09-12 08:37 | PC.NURSE ---
pt a&ox4, vss, reporting abd pain with associated nausea/vomiting/diarrhea since Monday, pt tried a bland diet at home with no symptom improvement. labs obtained, 20G IV placed right AC, pt to CT. pt pending urine sample/CT/lab results.
[2023-09-12 08:41] LABS: Anion Gap 11 (12-20); Blood Urea Nitrogen 13 mg/dL (9-16); Calcium 9.6 mg/dL (8.4-10.2); Carbon Dioxide 24 mmol/L (22-29); Chloride 108 mmol/L (96-108); Creatinine Clr Calc Pharmacy 118.4; Estimated Glomerular Filt Rate > 60; Glucose Random 102 mg/dL (60-115); Lipase 52 U/L (8-78); Potassium 4.3 mmol/L (3.3-5.1); Sodium 139 mmol/L (135-145)
[2023-09-12] MEDS: 0.9 % Sodium Chloride 1,000 ML 999 ML IV (08:47)
[2023-09-12] MEDS: Loperamide HCl 2 MG CAPSULE PO (08:48)
[2023-09-12] MEDS: Magnesium Hydrox/Alum Hydrox 30 ML ORAL.SUSP PO (08:49)
[2023-09-12] MEDS: Famotidine/PF 20 MG/2 ML VIAL IVPUSH (08:49)
[2023-09-12] MEDS: ondansetron HCL 4 MG/2 ML VIAL IVPUSH (08:49)
--- NOTE | 2023-09-12 09:01 | PC.NURSE ---
pt back in room from CT scan, 1L NS running, medicated per JAN. resting quietly, no new orders at this time.
[2023-09-12 10:08] VITALS: BP 127/77; PULSE 61; RESP 16; O2SAT 100
[2023-09-12 10:35] LABS: Appearance Urine Clear; Color Urine Yellow; Glucose Urine UA Negative (Negative); Leukocyte Esterase Urine Negative (Negative); Nitrite Urine Negative (Negative); PH 5.5 (5.0-9.0); Urine Blood Negative (Negative); Urine Ketones Negative (Negative); Urine Protein Negative (Neg-Trace)
== END 2023-09-12 11:03 | disposition home or self-care (01) ==
PROVIDERS: Emergency Provider Emergency Medicine
DX: K29.00 Acute gastritis without bleeding (principal); R11.2 Nausea with vomiting, unspecified; Z79.899 Other long term (current) drug therapy
CPT/HCPCS: 36415; 74176; 80048; 81003; 83690; 85025; 96361; 96374; 96375; 99284; 99285; J2405

== ENCOUNTER 2023-11-27 14:05 | Emergency (ER) | payer OTHER, SELFPAY ==
--- NOTE | ~2023-11-27 | CT_ITS ---
EXAMINATION: CT HEAD WITHOUT CONTRAST CLINICAL INFORMATION: Headaches with positional changes. COMPARISON: None. TECHNIQUE: Contiguous axial imaging was performed from the skullbase to vertex without intravenous administration of contrast. This CT examination was performed using dose optimization techniques as appropriate, variously including the following: *Automated exposure control *Adjustment of mA and/or kV according to patient size (this includes techniques or standardized protocols for targeted exams where dose is matched to indication/reason for exam; i.e. extremities or head) *Use of iterative reconstruction technique DLP: 733 mGy-cm. FINDINGS: There is no evidence of acute intracranial hemorrhage or territorial infarction. No abnormal mass effect or midline shift is seen. Smart to white matter differentiation is well preserved. No extra-axial fluid collections are identified. The ventricles are normal in size. There is no abnormal attenuation within the brain parenchyma. The osseous structures and soft tissues are normal. The mastoid air cells are well aerated. There is mild mucosal thickening in the ethmoid and left maxillary sinuses. CT/CT head/brain wo IV con IMPRESSION: No acute intracranial pathology.
--- NOTE | 2023-11-27 14:18 | ED.HA ---
HPI - Headache General Chief Complaint: Headache Stated Complaint: headache Time Seen by Provider: 11/27/23 14:50 Source: patient and medical reimbursement manager Mode of arrival: ambulatory Limitations: language barrier History of Present Illness HPI Narrative: Patient is a 37 year old assigned male at with no reported medical history presenting to the emergency department today with a headache, photosensitivity, and nausea. Patient states that yesterday he began to have a headache, photosensitivity, and nausea. Patient denies any dizziness, lightheadedness, abdominal pain, vomiting, fever, chills, blurry vision, double vision, loss of vision, chest pain, difficulty breathing, shortness of breath, back pain, night sweats, pain with urination, increased urinary frequency, increased urinary urgency, blood in his urine or stool, syncope or a near syncopal episode, recent trauma or falls, bowel incontinence, bladder incontinence, bowel retention, bladder retention, or any other complaints at this time. MD elicited complaint: headache Onset (ago): day(s) (1) Severity: mild Associated symptoms: nausea Treatments prior to arrival: none Related Data Previous Rx's Medication Instructions Recorded erythromycin 5 mg/gram (0.5 %) eye 0.5 inch ophthalmic (eye) BID 7 06/15/21 ointment days #3.5 grams albuterol sulfate 90 mcg/actuation 2 puff inhalation Q6H PRN 11/18/21 aerosol inhaler (ProAir HFA) shortness of breath or wheezing #6.7 grams oxycodone 5 mg tablet 5 mg PO Q8H PRN pain #10 tabs 07/25/22 cyclobenzaprine 10 mg tablet 10 mg PO TID PRN muscle spasm #14 06/04/23 tabs ketorolac 10 mg tablet 10 mg PO TID PRN pain 5 days #15 06/04/23 tabs omeprazole 40 mg capsule,delayed 40 mg PO DAILY #15 caps 09/12/23 release xxfbdiujsc-vuysrynopvkyv-hgsfbirw 1 cap PO TID PRN pain #14 caps 11/27/23 50 mg-300 mg-40 mg capsule (Fioricet) Allergies Allergy/AdvReac Type Severity Reaction Status Date / Time No Known Allergies Allergy Unverified 07/30/20 18:25 Review of Systems Constitutional: Constitutional: Reports no additional constitutional complaints, Denies chills, Denies fever(s), Reports headache(s) and Denies night sweats Eyes: Eyes: Reports no additional eye complaints, Denies blurry vision, Denies change in vision, Denies diplopia, Denies eye discharge, Denies loss of vision and Denies eye pain ENT: Denies dizziness and Reports headache(s) Cardiovascular: Cardiovascular: Reports no additional cardiovascular complaints, Denies chest pain, Denies lightheadedness, Denies Loss of Consciousness and Denies dyspnea Respiratory: Respiratory: Reports no additional respiratory complaints and Denies dyspnea Gastrointestinal: Gastrointestinal: Reports no additional gastrointestinal complaints, Denies abdominal pain, Denies melena, Denies hematochezia, Denies change in bowel habits, Denies change in stool character, Reports nausea and Denies vomiting Genitourinary: Genitourinary: Reports no additional male genitourinary complaints, Denies hematuria, Denies oliguria, Denies difficulty urinating, Denies dysuria, Denies urinary frequency, Denies urinary hesitancy, Denies urinary incontinence and Denies urinary urgency Musculoskeletal: Musculoskeletal: Reports no additional musculoskeletal complaints, Denies numbness and Denies tingling Neurologic: Denies dizziness, Reports headache(s), Denies loss of vision, Denies numbness and Denies tingling Psychiatric: Psychiatric: Reports no additional psychiatric complaints Endocrine: Endocrine: Reports no additional endocrine complaints Hematologic/Lymphatic: Hematologic/Lymphatic: Reports no additional hematologic/lymphatic complaints Allergic/Immunologic: Allergic/Immunologic: Reports no additional allergic/immunologic complaints PMFSH Past Medical History Attestation statement: The following information was validated with the patient. Source: old records reviewed and nursing notes reviewed Onset Date is defined in the Problem List Problems that require an onset date and time if occurred within 24 hrs of arrival to the ED Aortic Dissection and Rupture; Neurologic impairment; Cardiopulmonary Arrest; Endotracheal Intubation; Insertion or Replacement of Mechanical Circulatory Assist Device Medical History No known health problems Social History Social History Patient Tobacco Use Status: Never used Tobacco Advance Directives: No Advance Directives Information Provided: No Physical Exam Vital Signs: Vital Signs: Last Vital Signs Temp 98.6 F 11/27/23 14:19 Pulse 73 11/27/23 14:19 Resp 16 11/27/23 14:19 BP 119/72 11/27/23 14:19 Pulse Ox 97 11/27/23 14:19 O2 Del Method Room Air 11/27/23 14:19 BMI result Body Mass Index 33.1 Const: General: cooperative, no acute distress, alert and awake Nutritional Appearance: well nourished Orientation/consciousness: patient oriented x3 Limitations: no limitations HEENT: Head: Yes normal to inspection and Yes atraumatic Ears: hearing grossly normal bilaterally and external ears normal General nose exam: Normal external nose present, no nasal discharge noted and no epistaxis Face and sinus: Yes normal facial exam, No abrasion and No laceration Mouth: Normal oral and palatal mucosa present, no drooling and no muffled voice Eyes: General: appearance normal, both eyes and all related structures Periorbital: periorbital findings normal Eyelids: Yes eyelids normal Conjunctivae: conjunctivae normal Pupils: Equal, round and reactive pupils present EOM: EOMs intact bilaterally Neck: Neck: Yes normal visual inspection, Yes full ROM and Yes no lymphadenopathy Chest: Chest palpation & inspection: normal inspection of the chest Resp: Effort & Inspection: normal respiratory effort and able to speak in complete sentences GI: Inspection: Yes normal to inspection Neuro: General: patient oriented x3 and moves all extremities Cranial nerves: Yes Equal, round and reactive pupils present Cognition (Neuro): normal cognition Motor exam (neuro): 5/5 motor strength present throughout Sensory Exam: Normal double simultaneous stimulation for sensation Coordination: vdbhyb-co-vusk test normal Extrem: General: Yes normal to inspection, Yes full ROM and Yes capillary refill normal Psych: Appearance: grossly normal Mental Status: mental status grossly normal Affect: normal affect Attitude: cooperative Thought process: Normal thought process present Thought content: Normal thought content present Insight: Good insight present (Psych) Course Course Course Narrative: RME:?37 yo male here for eval of constant frontal headache occuring acutely yesterday. took excedrin at 2100 last night. woke up with continued TABARES. +ear pain, L>R. +photophobia. +nausea w/o vomiting. no hx of headache/migraine. TABARES worse w/ lying down. reports pressure sensation. PERRLA. exam nonfocal. ambulating w/ steady gait. +photophobia plan for CT Full HPI, ROS and PE to be performed by the primary ED provider. Medications Administered Discontinued Medications Generic Name Dose Route Start Last Admin Trade Name Jerry PRN Reason Stop Dose Admin Sodium Chloride 1,000 mls @ 999 mls/hr 11/27/23 15:00 11/27/23 15:05 Ns IV 11/27/23 16:00 999 mls/hr .Q1H1M [place] Administration Ketorolac Tromethamine 15 mg 11/27/23 14:51 11/27/23 15:05 Ketorolac Tromethamine 15 Mg/Ml Vial IVPUSH 11/27/23 14:52 15 mg ONCE ONE Administration Ondansetron HCl 4 mg 11/27/23 14:51 11/27/23 15:05 Ondansetron Hcl 4 Mg/2 Ml Vial IVPUSH 11/27/23 14:52 4 mg ONCE ONE Administration Medical Decision Making Medical Decision Making [facility] Narrative: Patient is a 37 year old assigned male at with no reported medical history presenting to the emergency department today with a headache, nausea, and photosensitivity. Patient's physical exam was unremarkable. Patient had no meningeal signs. Patient's blood work was unremarkable. Patient's head CT showed no acute process. I explained my physical exam findings as well as all test results to the patient. I answered all questions asked by the patient. I stressed the importance of the patient taking his medication as prescribed. I stressed the importance of the patient following up with his primary care provider and a neurologist for migraine management. I stressed the importance of the patient returning to the emergency department immediately if his symptoms were to worsen or if he were to develop any dizziness, shortness of breath, difficulty breathing, chest pain, blurry vision, loss of vision, nausea, vomiting, abdominal pain, fever, chills, back pain, or any other complaints. Patient verbalized agreement and understanding with this treatment plan and discharge. Differential Diagnosis Differential Diagnoses: The differential diagnosis associated with the presentation includes Migraine Headache Viral illness URI Admission/Observation Consideration of admission/observation: Escalation of care including admission/observation considered Patient would have been admitted to the hospital had his work up had any findings where hospital admission was appropriate and his clinical presentation warranted hospital admission. Lab Data [facility] Lab Attestation statement: I reviewed the patient's lab results. My interpretation of these results are in the [facility] Rationale portion of this note. 11/27/23 15:03 11/27/23 15:03 Labs: Lab Results 11/27/23 Range/Units 15:03 WBC 5.5 (4.8-10.8) X10*3/uL RBC 5.06 (4.60-5.80) X10*6/uL Hgb 14.5 (14.0-18.0) g/dl Hct 43.5 (42.0-52.0) % MCV 86.0 (80.0-98.0) fL MCH 28.7 (27.0-33.0) pg MCHC 33.3 (31.0-36.0) g/dl RDW 13.1 (11.0-16.0) % Plt Count 245 (160-400) X10*3/uL MPV 11.5 (9.4-12.4) fL Immature Gran % (Auto) 0.2 (0.0-0.4) % Neut % (Auto) 63.8 (45-73) % Lymph % (Auto) 29.0 (20-40) % [place] % (Auto) 6.2 (2-11) % Eos % (Auto) 0.4 (0-4) % Baso % (Auto) 0.4 (0-2) % Lymph # (Auto) 1.6 (1.2-4.9) X10*3/uL [place] # (Auto) 0.3 (0.1-1.2) X10*3/uL Eos # (Auto) 0.0 (0.0-0.4) X10*3/uL Baso # (Auto) 0.0 (0.0-0.2) X10*3/uL Abs Immat Gran (auto) 0.01 (0.00-0.03) X10*3/uL Absolute Neuts (auto) 3.5 (2.0-8.3) x10*3/uL Absolute Nucleated RBC 0.000 (0.0-0.012) X10*3/uL Nucleated RBC % (auto) 0.0 (0.0-0.2) /100WBC Sodium 139 (135-145) mmol/L Potassium 3.7 (3.3-5.1) mmol/L Chloride 107 (96-108) mmol/L Carbon Dioxide 24 (22-29) mmol/L Anion Gap 12 (12-20) BUN 12 (9-16) mg/dL Creatinine 0.96 (0.5-1.4) mg/dL Estim Creat Clear Calc 106.1 Estimated GFR > 60 Random Glucose 144 H (60-115) mg/dL Calcium 9.4 (8.4-10.2) mg/dL Magnesium 2.2 (1.6-2.6) mg/dL Total Bilirubin 0.4 (0.0-1.0) mg/dL AST 18 (5-37) U/L ALT 21 (0-40) U/L Alkaline Phosphatase 87 (39-117) U/L Total Protein 7.1 (6.5-8.0) g/dL Albumin 4.3 (3.5-5.0) g/dL COVID-19 (DONNA) Negative (Negative) COVID-19 Clin Com See Note Influenza Type A (RADHA) Negative (Negative) Influenza Type B (RADHA) Negative (Negative) Influenza A & B Note See Note Independent Interpretation I performed an independent interpretation of an: CT Scan Interpretation: My interpretation is in agreement with the radiologist's impression of this imaging study. EXAMINATION: CT HEAD WITHOUT CONTRAST CLINICAL INFORMATION: Headaches with positional changes. COMPARISON: None. TECHNIQUE: Contiguous axial imaging was performed from the skullbase to vertex without intravenous administration of contrast. This CT examination was performed using dose optimization techniques as appropriate, variously including the following: *Automated exposure control *Adjustment of mA and/or kV according to patient size (this includes techniques or standardized protocols for targeted exams where dose is matched to indication/reason for exam; i.e. extremities or head) *Use of iterative reconstruction technique DLP: 733 mGy-cm. FINDINGS: There is no evidence of acute intracranial hemorrhage or territorial infarction. No abnormal mass effect or midline shift is seen. Smart to white matter differentiation is well preserved. No extra-axial fluid collections are identified. The ventricles are normal in size. There is no abnormal attenuation within the brain parenchyma. The osseous structures and soft tissues are normal. The mastoid air cells are well aerated. There is mild mucosal thickening in the ethmoid and left maxillary sinuses. CT/CT head/brain wo IV con IMPRESSION: No acute intracranial pathology. Dictated By: MIRI SHARIF MD Signed By: Electronically signed by MIRI SHARIF MD 11/27/23 1346 Radiology Impression Discussion of test interpretation with radiology: I have reviewed the radiologist's reading. Prescription Management I considered prescription management with: Pain Medication (patient prescribed pain medication.) Discharge Plan Discharge Clinical Impression: Migraine Patient Disposition: Home, Self-Care Instructions: Migraine Headache (ED) Additional Instructions: Follow up with your primary care provider and a neurologist. Return to the emergency department immediately if your symptoms worsen or if you develop any dizziness, shortness of breath, difficulty breathing, chest pain, blurry vision, loss of vision, nausea, vomiting, abdominal pain, fever, chills, back pain, or any other complaints. Maria Ines un seguimiento con ma proveedor de atenci?n primaria y un neur?logo. Regrese al departamento de emergencias inmediatamente si silvino s?ntomas empeoran o si presenta mareos, dificultad para respirar, dificultad para respirar, dolor en el pecho, visi?n borrosa, p?rdida de la visi?n, n?useas, v?mitos, dolor abdominal, fiebre, escalofr?os, dolor de espalda o cualquier otras quejas. Prescriptions: New dmrhmmugfg-zsaqpcdifiuwx-krie [Fioricet] 50-300-40 mg capsule 1 cap PO TID PRN (Reason: pain) Qty: 14 0RF No Action erythromycin 5 mg/gram (0.5 %) ointment 0.5 inch ophthalmic (eye) BID 7 Days Qty: 3.5 0RF oxycodone 5 mg tablet 5 mg PO Q8H PRN (Reason: pain) Qty: 10 0RF Rx Instructions: Partial Fill upon patient request. albuterol sulfate [ProAir HFA] 90 mcg/actuation HFA aerosol inhaler 2 puff inhalation Q6H PRN (Reason: shortness of breath or wheezing) Qty: 6.7 0RF omeprazole 40 mg capsule,delayed release(DR/EC) 40 mg PO DAILY Qty: 15 0RF ketorolac 10 mg tablet 10 mg PO TID PRN (Reason: pain) 5 Days Qty: 15 0RF Rx Instructions: Received 1st dose intramuscularly in the emergency department and tolerated well. cyclobenzaprine 10 mg tablet 10 mg PO TID PRN (Reason: muscle spasm) Qty: 14 0RF Referrals: [facility] [place] Family Medicine [Provider Group] (Call to establish and follow up with a primary care provider. If you already have a primary care provider, please follow up with them. Llame para establecer y realizar un seguimiento con un proveedor de atenci?n primaria. Si ya tiene un proveedor de atenci?n primaria, maria ines un seguimiento con ?l.) [facility] [place] [facility] [Provider Group] (Call to establish and follow up with a primary care provider. If you already have a primary care provider, please follow up with them. Llame para establecer y realizar un seguimiento con un proveedor de atenci?n primaria. Si ya tiene un proveedor de atenci?n primaria, maria ines un seguimiento con ?l.) [facility] [place] [facility] [Provider Group] (Call to establish and follow up with a primary care provider. If you already have a primary care provider, please follow up with them. Llame para establecer y realizar un seguimiento con un proveedor de atenci?n primaria. Si ya tiene un proveedor de atenci?n primaria, maria ines un seguimiento con ?l.) [facility] [place] [facility] [Provider Group] (Call to establish and follow up with a neurologist. Llamar para establecer y clyde seguimiento con un neur?logo.) Stand Alone Forms: Work/School Release Interventions: ED Discharge Assessment Last Done: 11/27/23 16:38 Discharge Date/Time: 11/27/23 16:39 Print Language: Moldovan
[2023-11-27 14:19] VITALS: BP 119/72; PULSE 73; RESP 16; TEMP 37; O2SAT 97; BMI 33.1
[2023-11-27] MEDS: 0.9 % Sodium Chloride 1,000 ML 999 ML IV (15:05)
[2023-11-27] MEDS: ondansetron HCL 4 MG/2 ML VIAL IVPUSH (15:05)
[2023-11-27] MEDS: Ketorolac Tromethamine 15 MG/ML VIAL IVPUSH (15:05)
[2023-11-27 15:08] LABS: MANUAL DIFF FLAG NO
[2023-11-27 15:11] LABS: Basophils Percent Auto 0.4 % (0-2); Eosinophils Percent Auto 0.4 % (0-4); Hematocrit 43.5 % (42.0-52.0); Hemoglobin 14.5 g/dl (14.0-18.0); Imm Gran Abs Auto 0.01 X10*3/uL (0.00-0.03); Imm Gran Pct Auto 0.2 % (0.0-0.4); Lymphocytes Absolute Auto 1.6 X10*3/uL (1.2-4.9); Mean Corpuscular HGB Conc 33.3 g/dl (31.0-36.0); Mean Corpuscular Hemoglobin 28.7 pg (27.0-33.0); Mean Platelet Volume 11.5 fL (9.4-12.4); Monocytes Absolute Auto 0.3 X10*3/uL (0.1-1.2); Monocytes Percent Auto 6.2 % (2-11); Neutrophils Absolute Auto 3.5 x10*3/uL (2.0-8.3); Neutrophils Percent Auto 63.8 % (45-73); Platelet Count 245 X10*3/uL (160-400); Red Blood Count 5.06 X10*6/uL (4.60-5.80); Red Cell Distribution Width 13.1 % (11.0-16.0); White Blood Count 5.5 X10*3/uL (4.8-10.8)
[2023-11-27 15:25] LABS: Alanine Aminotransferase 21 U/L (0-40); Albumin Level 4.3 g/dL (3.5-5.0); Alkaline Phosphatase 87 U/L (39-117); Anion Gap 12 (12-20); Aspartate Amino Transferase 18 U/L (5-37); Bilirubin Total 0.4 mg/dL (0.0-1.0); Blood Urea Nitrogen 12 mg/dL (9-16); COVID-19 Test Negative (Negative); Calcium 9.4 mg/dL (8.4-10.2); Carbon Dioxide 24 mmol/L (22-29); Chloride 107 mmol/L (96-108); Creatinine Clr Calc Pharmacy 106.1; Estimated Glomerular Filt Rate > 60; Glucose Random 144 mg/dL (60-115); IDNOW Serial# 08D9AD1C; IDNOW Serial# 152EDE1D; Influenza A Negative (Negative); Influenza B2 Negative (Negative); Magnesium 2.2 mg/dL (1.6-2.6); Potassium 3.7 mmol/L (3.3-5.1); Sodium 139 mmol/L (135-145); Total Protein 7.1 g/dL (6.5-8.0)
== END 2023-11-27 16:39 | disposition home or self-care (01) ==
PROVIDERS: Physician Assistant Medical; Emergency Provider Emergency Medicine
DX: G43.909 Migraine, unspecified, not intractable, without status migrainosus (principal); Z11.52 Encounter for screening for COVID-19; Z20.828 Contact with and (suspected) exposure to other viral communicable diseases; Z79.899 Other long term (current) drug therapy
CPT/HCPCS: 36415; 70450; 80053; 83735; 85025; 87502; 87635; 96374; 96375; 99283; 99284; J1885; J2405

== ENCOUNTER 2024-06-04 19:50 | Emergency (ER) | payer MEDICAID, SELFPAY ==
--- NOTE | ~2024-06-04 | CT_ITS ---
EXAMINATION: CT HEAD WITHOUT CONTRAST CLINICAL INFORMATION: LOC, head strike. Headache COMPARISON: None available. TECHNIQUE: Contiguous axial imaging was performed from the skull base to vertex without intravenous administration of contrast. This CT examination was performed using dose optimization techniques as appropriate, variously including the following: *Automated exposure control *Adjustment of mA and/or kV according to patient size (this includes techniques or standardized protocols for targeted exams where dose is matched to indication/reason for exam; i.e. extremities or head) *Use of iterative reconstruction technique DLP: 771 mGy-cm FINDINGS: There is no acute intra-axial, extra-axial bleed, masses or midline shift. There is no acute infarction evolution. The romo to white matter differentiation is maintained normal. The lateral ventricles are symmetrical in size and configuration without enlargement. Bone windows reveal no calvarial abnormality. Small polyp or retention cyst in left maxillary sinus. Rest of the paranasal sinuses are clear. There is no scalp soft tissue abnormality. CT/CT head/brain wo IV con IMPRESSION: No acute intracranial process seen.
--- NOTE | 2024-06-04 19:51 | ED_ITS ---
HPI - Headache General Chief Complaint: Syncope Stated Complaint: headache Time Seen by Provider: 06/04/24 20:28 Source: patient Mode of arrival: ambulatory Limitations: no limitations History of Present Illness ED Provider: Dr. Dona Keane HPI Narrative: Patient comes to the emergency room complaining of headache secondary to falling. 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 Patient states that he remembers feeling lightheaded, blacking out, patient was able to back up towards the wall. The next thing that he remembers he woke up on the floor, believes he hit his head especially on the right side. Patient states that he does not remember having any chest pain or shortness of breath. Patient states that he has never had any issues with his heart or lungs or syncopal episodes in the past. At this time, patient has no chest pain or shortness of breath, no palpitations, states that he has headache on the right side. Related Data Previous Rx's ?Medication ?Instructions ?Recorded erythromycin 5 mg/gram (0.5 %) eye 0.5 inch ophthalmic (eye) BID 7 06/15/21 ointment days #3.5 grams albuterol sulfate 90 mcg/actuation 2 puff inhalation Q6H PRN 11/18/21 aerosol inhaler (ProAir HFA) shortness of breath or wheezing #6.7 grams oxycodone 5 mg tablet 5 mg PO Q8H PRN pain #10 tabs 07/25/22 cyclobenzaprine 10 mg tablet 10 mg PO TID PRN muscle spasm #14 06/04/23 tabs ketorolac 10 mg tablet 10 mg PO TID PRN pain 5 days #15 06/04/23 tabs omeprazole 40 mg capsule,delayed 40 mg PO DAILY #15 caps 09/12/23 release ekhiwrurox-iabcdvyaqwfge-hpuegjba 1 cap PO TID PRN pain #14 caps 11/27/23 50 mg-300 mg-40 mg capsule (Fioricet) Allergies Allergy/AdvReac Type Severity Reaction Status Date / Time No Known Allergies Allergy Verified 06/04/24 19:56 Review of Systems 2 Review of Systems: Constitutional : No Weight loss, No Fever, No Chills, No Night Sweats, No Fatigue, No Malaise ENT/Mouth : No Hearing loss, No Ear Pain, No Nasal Congestion, No Sinus Pain, No Hoarseness, No sore throat, No Rhinorrhea, No Swallowing Difficulty Eyes: No Eye Pain, No Swelling, No Redness, No Foreign Body, No Discharge, No Vision Changes Cardiovascular : No Chest Pain, No SOB, No Dyspnea on Exertion, No Orthopnea, No Edema, No Palpitations Respiratory : No Cough, No Sputum, No Wheezing, No Smoke Exposure, No Dyspnea Gastrointestinal : No Nausea, No Vomiting, No Diarrhea, No Constipation, No abdominal Pain, No Hematochezia, No Melena Genitourinary : no irregular bleeding, No Dysuria, No Urinary Frequency, No Hematuria, No Urinary Incontinence, No Urgency, No Flank Pain, No Urinary Flow Changes, No Hesitancy Musculoskeletal : No joint pain, No Myalgias, No Joint Swelling Skin : No Skin Lesions, No rash Neuro : No Weakness, No Numbness, No Paresthesias, complaining of 1 episode of loss of consciousness, lightheadedness in headache Psych : No Anxiety/Panic, No Depression, No SI/HI/AH/VH, No Social Issues, Heme/Lymph: No Bruising, No Bleeding,No Lymphadenopathy Endocrine : No Polyuria, No Polydipsia, No Temperature Intolerance PMFSH Past Medical History Medical History No known health problems Social History Social History Alcohol intake: current Alcohol intake frequency: holidays/special occasions only Patient Tobacco Use Status: Never used Tobacco Smoked in Last 30 Days: No Use of substances other than those prescribed or required for medical reasons: No Any prior treatment program specific to substance use: No Advance Directives: No Advance Directives Information Provided: No Do you have a plan to hurt others: No Plan Physical Exam 2 Vital Signs: Vital Signs: Last Vital Signs Temp 98.7 F 06/04/24 21:44 Pulse 60 06/04/24 21:44 Resp 21 H 06/04/24 21:44 BP 118/77 06/04/24 21:44 Pulse Ox 96 06/04/24 21:44 O2 Del Method Room Air 06/04/24 21:44 BMI result Body Mass Index 29.2 Const: Other: Appearance: Alert. Oriented X3. No acute distress. Eyes: Pupils equal, round and reactive to light. ENT: Pharynx normal. Neck: Normal inspection. Neck supple. No lymph nodes noted. No crepitus CVS: Normal heart rate and rhythm. Pulses normal. Normal S1 and S2 Respiratory: No respiratory distress. Breath sounds normal. No Wheezing. No rales Abdomen: Soft and nontender. No rigidity. No distention. Skin: Skin warm and dry. Normal skin color. Normal skin turgor. Extremities: No lower extremity edema. No Lacerations. No Rash Neuro: Oriented X 3. No motor deficit. No sensory deficit. Moving all extremities. No slurred speech. CN 2 through 12 grossly intact Psych: calm, cooperative, normal affect Course Course Course Narrative: This is a Rapid Medical Exam performed in triage by Larissa Richard PA-C. Full HPI, ROS and PE to be performed by primary ED provider. 38 year-old M w/ PMHx presenting to the ED c/o headache s/p fall 2 days ago with +LOC & head strike. Admits to feeling dizzy and then woke up on the floor. Denies AC use. denies dizziness now. +R thigh pain PE: ambulating w/steady gait, nontoxic appearing, A&Ox3 Plan: EKG, Labs, Head CT Medications Administered Discontinued Medications Generic Name Dose Route Start Last Admin Trade Name Jerry PRN Reason Stop Dose Admin Diphenhydramine HCl 25 mg 06/04/24 21:03 06/04/24 21:36 Diphenhydramine Hcl 50 Mg/Ml Vial IVPUSH 06/04/24 21:04 25 mg ONCE ONE Administration Sodium Chloride 1,000 mls @ 999 mls/hr 06/04/24 21:03 06/04/24 23:29 Ns IVCONT 06/04/24 22:03 Infused .Q1H1M ONE Infusion Ketorolac Tromethamine 30 mg 06/04/24 21:03 06/04/24 21:36 Ketorolac Tromethamine 30 Mg/Ml Vial IVPUSH 06/04/24 21:04 30 mg ONCE ONE Administration Metoclopramide HCl 10 mg 06/04/24 21:03 06/04/24 21:36 Metoclopramide Hcl 10 Mg/2 Ml Vial IVPUSH 06/04/24 21:04 10 mg ONCE ONE Administration Medical Decision Making Medical Decision Making [facility] Narrative: -my interpretation of EKG: Normal sinus rhythm, heart rate 72, no ST segment depression or elevation, no T-wave inversion, QTC 402 -my interpretation of CT scan of the head, no intracranial bleed -Patient receiving IV fluids, diphenhydramine ketorolac and Reglan IV. -my interpretation of labs,: Normal hematology, normal chemistry, normal troponin, D-dimer negative, EtOH negative, UA negative for UTI, urine toxicology positive for marijuana, D-dimer negative -orthostatic vitals negative -discussed with the patient that if he has ongoing symptoms, he needs to follow- up with his PCP, likely to be referred for a Holter monitor evaluation Differential Diagnosis Differential Diagnoses: The differential diagnosis associated with the presentation includes (Orthostatic hypotension, near syncope, P) Admission/Observation Consideration of admission/observation: Escalation of care including admission/observation considered (Given patient's sudden symptoms, observation considered) Lab Data MDM Lab Attestation statement: I reviewed the patient's lab results. 06/04/24 20:27 06/04/24 20:27 Labs: Lab Results 06/04/24 06/04/24 06/04/24 Range/Units 20:27 20:50 23:30 WBC 5.5 (4.8-10.8) X10*3/uL RBC 5.23 (4.60-5.80) X10*6/uL Hgb 15.4 (14.0-18.0) g/dl Hct 45.2 (42.0-52.0) % MCV 86.4 (80.0-98.0) fL MCH 29.4 (27.0-33.0) pg MCHC 34.1 (31.0-36.0) g/dl RDW 13.0 (11.0-16.0) % Plt Count 257 (160-400) X10*3/uL MPV 10.6 (9.4-12.4) fL Immature Gran % (Auto) 0.2 (0.0-0.4) % Neut % (Auto) 68.8 (45-73) % Lymph % (Auto) 19.5 L (20-40) % [place] % (Auto) 10.4 (2-11) % Eos % (Auto) 0.7 (0-4) % Baso % (Auto) 0.4 (0-2) % Lymph # (Auto) 1.1 L (1.2-4.9) X10*3/uL [place] # (Auto) 0.6 (0.1-1.2) X10*3/uL Eos # (Auto) 0.0 (0.0-0.4) X10*3/uL Baso # (Auto) 0.0 (0.0-0.2) X10*3/uL Abs Immat Gran (auto) 0.01 (0.00-0.03) X10*3/uL Absolute Neuts (auto) 3.8 (2.0-8.3) x10*3/uL Absolute Nucleated RBC 0.000 (0.0-0.012) X10*3/uL Nucleated RBC % (auto) 0.0 (0.0-0.2) /100WBC PT 12.1 (11.1-13.3) SEC INR 1.0 (0.9-1.1) D-Dimer High Sensitivty 197 NG/ML Sodium 138 (135-145) mmol/L Potassium 4.0 (3.3-5.1) mmol/L Chloride 107 (96-108) mmol/L Carbon Dioxide 21 L (22-29) mmol/L Anion Gap 14 (12-20) BUN 17 H (9-16) mg/dL Creatinine 0.91 (0.5-1.4) mg/dL Estim Creat Clear Calc 104.3 Estimated GFR > 60 Random Glucose 95 (60-115) mg/dL Calcium 9.2 (8.4-10.2) mg/dL Magnesium 2.3 (1.6-2.6) mg/dL Total Bilirubin 0.3 (0.0-1.0) mg/dL Direct Bilirubin 0.1 (0.0-0.5) mg/dL AST 21 (5-37) U/L ALT 29 (0-40) U/L Alkaline Phosphatase 83 (39-117) U/L Troponin I High Sens < 2.7 (<3.5-35.0) ng/L Total Protein 7.2 (6.5-8.0) g/dL Albumin 4.2 (3.5-5.0) g/dL Urine Color Yellow Urine Appearance Clear Urine pH 6.0 (5.0-9.0) Ur Specific [place] 1.025 (1.005-1.025) Urine Protein Negative (Neg-Trace) mg/dL Urine Glucose (UA) Negative (Negative) mg/dL Urine Ketones Negative (Negative) mg/dL Urine Blood Negative (Negative) Urine Nitrite Negative (Negative) Ur Leukocyte Esterase Negative (Negative) Urine Opiates Screen Not Detected (Not Detect) Ur Buprenorphine Scrn Not Detected (Not Detect) ng/mL Ur Oxycodone Screen Not Detected (Not Detect) ng/mL Urine Methadone Screen Not Detected (Not Detect) ng/mL Urine Fentanyl Screen Not Detected (Not Detect) Ur Barbiturates Screen Not Detected (Not Detect) Ur Phencyclidine Scrn Not Detected (Not Detect) Ur Amphetamines Screen Not Detected (Not Detect) U Benzodiazepines Scrn Not Detected (Not Detect) Urine Cocaine Screen Not Detected (Not Detect) U Marijuana (THC) Screen POSITIVE H (Not Detect) Ethyl Alcohol < 10 mg/dL Influenza Type A (PCR) NEGATIVE (Negative) Influenza Type B (PCR) NEGATIVE (Negative) RSV RNA Qual (PCR) NEGATIVE (Negative) SARS-CoV-2 RNA (RT-PCR) NEGATIVE (Negative) Independent Interpretation I performed an independent interpretation of an: CT Scan Radiology Impression Discussion of test interpretation with radiology: I have reviewed the radiologist's reading. Radiologist Impression: FINDINGS: There is no acute intra-axial, extra-axial bleed, masses or midline shift. There is no acute infarction evolution. The romo to white matter differentiation is maintained normal. The lateral ventricles are symmetrical in size and configuration without enlargement. Bone windows reveal no calvarial abnormality. Small polyp or retention cyst in left maxillary sinus. Rest of the paranasal sinuses are clear. There is no scalp soft tissue abnormality. CT/CT head/brain wo IV con IMPRESSION: No acute intracranial process seen. Critical Care Time Critical Care Time Critical Care Time: Yes Total Critical Care Time: 45 Attestation: I have personally provided critical care time. Time includes review of lab data, radiology results, discussion with consultants, and monitoring for potential decompensation. Intervention performed as documented. Discharge Plan Discharge Clinical Impression: Vasovagal syncope Patient Disposition: Home, Self-Care Instructions: Syncope (ED) Additional Instructions: Please follow-up with your primary care physician tomorrow. If you have any worsening or new symptoms, please return to the emergency room or call 911 Prescriptions: No Action erythromycin 5 mg/gram (0.5 %) ointment 0.5 inch ophthalmic (eye) BID 7 Days Qty: 3.5 0RF oxycodone 5 mg tablet 5 mg PO Q8H PRN (Reason: pain) Qty: 10 0RF Rx Instructions: Partial Fill upon patient request. albuterol sulfate [ProAir HFA] 90 mcg/actuation HFA aerosol inhaler 2 puff inhalation Q6H PRN (Reason: shortness of breath or wheezing) Qty: 6.7 0RF omeprazole 40 mg capsule,delayed release(DR/EC) 40 mg PO DAILY Qty: 15 0RF ketorolac 10 mg tablet 10 mg PO TID PRN (Reason: pain) 5 Days Qty: 15 0RF Rx Instructions: Received 1st dose intramuscularly in the emergency department and tolerated well. cyclobenzaprine 10 mg tablet 10 mg PO TID PRN (Reason: muscle spasm) Qty: 14 0RF cocbwxuarj-joowofjikxiff-cams [Fioricet] 50-300-40 mg capsule 1 cap PO TID PRN (Reason: pain) Qty: 14 0RF Stand Alone Forms: Work/School Release Print Language: Burkinan
[2024-06-04 19:52] VITALS: BP 127/84; PULSE 70; RESP 16; TEMP 36.6; O2SAT 99; BMI 29.2
--- NOTE | 2024-06-04 19:56 | ECG_ITS ---
Test Reason : LOC Blood Pressure : / mmHG Vent. Rate : 072 BPM Atrial Rate : 072 BPM P-R Int : 158 ms QRS Dur : 078 ms QT Int : 368 ms P-R-T Axes : 026 051 028 degrees QTc Int : 402 ms Normal sinus rhythm Normal ECG No previous ECGs available Referred By: Larissa Richard Electronically Signed By:JULY MC
[2024-06-04 20:29] VITALS: BP 100/64; PULSE 55
[2024-06-04 20:30] VITALS: BP 114/82; PULSE 73
[2024-06-04 20:31] LABS: MANUAL DIFF FLAG NO
[2024-06-04 20:32] VITALS: BP 118/80; PULSE 72
[2024-06-04 20:35] LABS: Basophils Percent Auto 0.4 % (0-2); Eosinophils Percent Auto 0.7 % (0-4); Hematocrit 45.2 % (42.0-52.0); Hemoglobin 15.4 g/dl (14.0-18.0); Imm Gran Abs Auto 0.01 X10*3/uL (0.00-0.03); Imm Gran Pct Auto 0.2 % (0.0-0.4); Lymphocytes Absolute Auto 1.1 X10*3/uL (1.2-4.9); Lymphocytes Percent Auto 19.5 % (20-40); Mean Corpuscular HGB Conc 34.1 g/dl (31.0-36.0); Mean Corpuscular Hemoglobin 29.4 pg (27.0-33.0); Mean Corpuscular Volume 86.4 fL (80.0-98.0); Mean Platelet Volume 10.6 fL (9.4-12.4); Monocytes Absolute Auto 0.6 X10*3/uL (0.1-1.2); Monocytes Percent Auto 10.4 % (2-11); Neutrophils Absolute Auto 3.8 x10*3/uL (2.0-8.3); Neutrophils Percent Auto 68.8 % (45-73); Platelet Count 257 X10*3/uL (160-400); Red Blood Count 5.23 X10*6/uL (4.60-5.80); White Blood Count 5.5 X10*3/uL (4.8-10.8)
[2024-06-04 20:36] VITALS: O2SAT 97
--- NOTE | 2024-06-04 20:41 | PC.NURSE ---
with help of circular knitter, pt explained that 2 days ago he had a syncopal episode where he felt dizzy and woke up on the floor. Having 8/10 headache and R-face pain. IV placed in L-Upper forearm #20. labs drawn and sent to pharmacy.
[2024-06-04 20:49] LABS: Alanine Aminotransferase 29 U/L (0-40); Albumin Level 4.2 g/dL (3.5-5.0); Alkaline Phosphatase 83 U/L (39-117); Anion Gap 14 (12-20); Aspartate Amino Transferase 21 U/L (5-37); Bilirubin Direct 0.1 mg/dL (0.0-0.5); Bilirubin Total 0.3 mg/dL (0.0-1.0); Blood Urea Nitrogen 17 mg/dL (9-16); Calcium 9.2 mg/dL (8.4-10.2); Carbon Dioxide 21 mmol/L (22-29); Chloride 107 mmol/L (96-108); Creatinine Clr Calc Pharmacy 104.3; Estimated Glomerular Filt Rate > 60; Glucose Random 95 mg/dL (60-115); Magnesium 2.3 mg/dL (1.6-2.6); Sodium 138 mmol/L (135-145); Total Protein 7.2 g/dL (6.5-8.0)
--- NOTE | 2024-06-04 20:51 | MHC.EDTECH ---
This tech provided patient with bedside urinal and instructions on how to perform a clean catch urine. Patient interprets for this tech and pateint states he is not able to void at this time
--- NOTE | 2024-06-04 21:02 | MHC.EDTECH ---
Patient's presents to patients room with food and drink. This tech explained that patient should not have any food or drink until all tests are back. Patient and expressed understanding.
[2024-06-04 21:03] LABS: Troponin-I High Sensitivity < 2.7 ng/L (<3.5-35.0)
[2024-06-04 21:08] LABS: Prothrombin Time 12.1 SEC (11.1-13.3)
[2024-06-04 21:10] LABS: Influenza A PCR NEGATIVE (Negative); Influenza B PCR NEGATIVE (Negative); Resp Syncy Virus RNA Qual PCR NEGATIVE (Negative); SARS COV2 PCR INHOUSE NEGATIVE (Negative)
[2024-06-04 21:11] LABS: D Dimer High Sensitivity 197 NG/ML
[2024-06-04 21:15] LABS: Ethanol < 10 mg/dL
[2024-06-04] MEDS: Ketorolac Tromethamine 30 MG/ML VIAL IVPUSH (21:36)
[2024-06-04] MEDS: diphenhydrAMINE HCL 50 MG/ML VIAL 25 MG IVPUSH (21:36)
[2024-06-04] MEDS: Metoclopramide HCl 10 MG/2 ML VIAL IVPUSH (21:36)
[2024-06-04] MEDS: 0.9 % Sodium Chloride 1,000 ML 999 ML IVCONT (21:37)
[2024-06-04 21:44] VITALS: BP 118/77; PULSE 60; RESP 21; TEMP 37.1; O2SAT 96
[2024-06-04 23:41] LABS: Appearance Urine Clear; Color Urine Yellow; Glucose Urine UA Negative (Negative); Leukocyte Esterase Urine Negative (Negative); Nitrite Urine Negative (Negative); Specific Gravity - Urine 1.025 (1.005-1.025); Urine Blood Negative (Negative); Urine Ketones Negative (Negative); Urine Protein Negative (Neg-Trace)
[2024-06-04 23:50] LABS: Amphetamine Screen Urine Not Detected (Not Detect); Barbiturates, Urine Not Detected (Not Detect); Benzodiazepines Screen Urine Not Detected (Not Detect); Buprenorphine Scr Not Detected (Not Detect); Cannabinoid Screen Urine POSITIVE (Not Detect); Cocaine Screen Urine Not Detected (Not Detect); Fentanyl, urine Not Detected (Not Detect); Methadone Screen, Urine Not Detected (Not Detect); Opiate Screen Urine Not Detected (Not Detect); Oxycodone Screen Urine Not Detected (Not Detect); Phencyclidine Screen Urine Not Detected (Not Detect)
[2024-06-05 00:40] VITALS: BP 113/65; PULSE 72; RESP 14; TEMP 37.1; O2SAT 99
[2024-06-05 01:17] VITALS: BP 113/65; PULSE 72; RESP 14; TEMP 37.1; O2SAT 99
== END 2024-06-05 00:40 | disposition home or self-care (01) ==
PROVIDERS: Physician Assistant; Emergency Provider Emergency Medicine
DX: R55 Syncope and collapse (principal); R51.9 Headache, unspecified; Z03.818 Encounter for observation for suspected exposure to other biological agents ruled out; M79.651 Pain in right thigh
CPT/HCPCS: 0241U; 36415; 70450; 80048; 80076; 80307; 81003; 83735; 84484; 85025; 85379; 85610; 93005; 96361; 96374; 96375; 99284; 99285; J1200; J1885; J2765

== ENCOUNTER → 2024-06-04 19:56 | Outpatient (BNV) | payer MEDICAID, SELFPAY | PROVIDERS: Emergency Provider Emergency Medicine; Visit Provider Internal Medicine | DX: R55 Syncope and collapse (principal) | CPT/HCPCS: 93010 ==

== ENCOUNTER 2024-11-22 15:01 | Outpatient (REF) | payer MEDICAID, SELFPAY ==
[2024-11-22 16:23] LABS: Estimated Average Glucose 108 mg/dL; Hemoglobin A1C 137.6843 umol/L; Hemoglobin A1c % 5.4 % (<6.0); Total Hemoglobin (HGBA1C) 3901.6592 umol/L
[2024-11-22 16:30] LABS: Alanine Aminotransferase 35 U/L (0-40); Albumin Level 4.6 g/dL (3.5-5.0); Alkaline Phosphatase 70 U/L (39-117); Anion Gap 9 (12-20); Aspartate Amino Transferase 25 U/L (5-37); Bilirubin Total 0.3 mg/dL (0.0-1.0); Blood Urea Nitrogen 14 mg/dL (9-16); Calcium 9.4 mg/dL (8.4-10.2); Carbon Dioxide 25 mmol/L (22-29); Chloride 110 mmol/L (96-108); Cholesterol 190 mg/dL (<200); Estimated Glomerular Filt Rate > 60; Glucose Random 100 mg/dL (60-115); HDL Cholesterol 55 mg/dL (>40); LDL Cholesterol Calculated 123 mg/dL (<100); Sodium 140 mmol/L (135-145); Total Protein 7.9 g/dL (6.5-8.0); Triglycerides 60 mg/dL (<150)
[2024-11-23 03:59] LABS: CT PCR NOT DETECTED (Not Detect.); NG PCR NOT DETECTED (Not Detect.)
[2024-11-23 08:21] LABS: HIV AB/AG Nonreactive (Nonreactive); HIV Num 1 0.04 S/CO (0.00-0.99); ~HepC Num1 0.07 S/CO (0.00-0.79); ~Hepatitis C Antibody Nonreactive (Nonreactive)
[2024-11-24 07:33] LABS: RPR Rapid Plasma Reagin NON-REACTIVE (NON-REACTIVE)
== END 2024-11-22 15:02 | disposition home or self-care (01) ==
LOC: HO.HHCL 15:01
PROVIDERS: Visit Provider General Practice
DX: E66.3 Overweight (principal); Z11.3 Encounter for screening for infections with a predominantly sexual mode of transmission
CPT/HCPCS: 80053; 80061; 83036; 86592; 86803; 87389; 87491; 87591

== ENCOUNTER 2024-12-13 10:21 | Emergency (ER) | payer MEDICAID, SELFPAY ==
--- NOTE | ~2024-12-13 | XR_ITS ---
EXAMINATION: XR CHEST CLINICAL INFORMATION: prod cough COMPARISON: 11/18/2021. TECHNIQUE: 2 views of the chest were obtained. FINDINGS: The cardiac, hilar, and mediastinal contours are normal. The lungs are clear bilaterally. There is no pneumothorax or pleural effusion. There is no focal osseous or soft tissue abnormality. There is a mild to moderate right convex thoracic scoliosis. XR/XR chest 2V IMPRESSION: No active pulmonary disease. No change from 11/18/2021. Electronically signed by: Milton Hernández MD 12/13/2024 11:44 AM [facility]
[2024-12-13 11:08] VITALS: BP 115/73; PULSE 77; RESP 20; TEMP 36.9; O2SAT 100; BMI 34.0
--- NOTE | 2024-12-13 11:08 | ED.URI ---
HPI - URI/Sore Throat General Chief Complaint: Upper Respiratory Symptoms Stated Complaint: Fever sore throat body pain Time Seen by Provider: 12/13/24 13:17 Source: patient, RN notes reviewed and old records reviewed Mode of arrival: ambulatory History of Present Illness ED Provider: Larissa Richard PA-C HPI Narrative: 39-year-old male with no significant past medical history presenting to the ED complaining of congestion, subjective fever, dry cough, sore throat x this morning. + sick contacts. Denies recent travel, abdominal pain, nausea/vomiting, CP/SOB Related Data Previous Rx's ?Medication ?Instructions ?Recorded erythromycin 5 mg/gram (0.5 %) eye 0.5 inch ophthalmic (eye) BID 7 06/15/21 ointment days #3.5 grams albuterol sulfate 90 mcg/actuation 2 puff inhalation Q6H PRN 11/18/21 aerosol inhaler (ProAir HFA) shortness of breath or wheezing #6.7 grams oxycodone 5 mg tablet 5 mg PO Q8H PRN pain #10 tabs 07/25/22 cyclobenzaprine 10 mg tablet 10 mg PO TID PRN muscle spasm #14 06/04/23 tabs ketorolac 10 mg tablet 10 mg PO TID PRN pain 5 days #15 06/04/23 tabs omeprazole 40 mg capsule,delayed 40 mg PO DAILY #15 caps 09/12/23 release kwwgqnhzwj-qpjitmiqlipsg-iaojdshm 1 cap PO TID PRN pain #14 caps 11/27/23 50 mg-300 mg-40 mg capsule (Fioricet) Allergies Allergy/AdvReac Type Severity Reaction Status Date / Time No Known Allergies Allergy Verified 12/13/24 11:09 Review of Systems Review of Systems: Yes all other systems are reviewed and are negative Constitutional: Constitutional: Reports as per [facility] [place] Past Medical History Attestation statement: The following information was validated with the patient. Source: old records reviewed Medical History No known health problems Social History Social History Alcohol intake: current Alcohol intake frequency: holidays/special occasions only Patient Tobacco Use Status: Never used Tobacco Advance Directives: No Advance Directives Information Provided: No Physical Exam Vital Signs: Vital Signs: Last Vital Signs Temp 98.5 F 12/13/24 11:08 Pulse 77 12/13/24 11:08 Resp 20 12/13/24 11:08 BP 115/73 12/13/24 11:08 Pulse Ox 100 12/13/24 11:08 O2 Del Method Room Air 12/13/24 11:08 BMI result Body Mass Index 34.0 Const: General: cooperative, healthy appearing and no acute distress Orientation/consciousness: patient oriented x3 Limitations: no limitations HEENT: Head: Yes normal to inspection and Yes atraumatic Ears: hearing grossly normal bilaterally and external ears normal General nose exam: Normal external nose present Face and sinus: Yes normal facial exam Mouth: Normal oral and palatal mucosa present and no drooling Throat: Yes tonsils normal, Yes uvula midline, No peritonsillar mass, Yes posterior oropharynx abnormal (Mild erythema), No uvula laterally displaced and No uvular edema Eyes: General: appearance normal, both eyes and all related structures EOM: EOMs intact bilaterally Neck: Neck: Yes normal visual inspection and Yes no meningeal signs Resp: Effort & Inspection: normal respiratory effort and no respiratory distress Auscultation: clear to auscultation bilaterally, no crackles and no wheezes Cardio: Rate: regular rate Heart sounds: S1 normal heart sound present and S2 normal heart sound present Skin: Rashes: no rashes Wounds: no wounds Neuro: General: patient oriented x3, tone normal and no meningeal signs Cranial nerves: Yes CN's II-XII intact bilaterally Gait exam (Neuro): Normal gait present Extrem: General: Yes normal to inspection Course Course Course Narrative: This is a Rapid Medical Exam performed in triage by Larissa Richard PA-C. Full HPI, ROS and PE to be performed by primary ED provider. 39yo M presenting to the ED c/o prod cough, congestion, subj fever, sore throat x this AM. +sick contacts. denies taking and med this AM PE: lungs CTA, dry cough appreciated, +mild erythema to posterior oropharynx, uvula midline Plan: viral testing rapid strep, CXR Medical Decision Making Medical Decision Making MDM Narrative: 39-year-old male with no significant past medical history presenting to the ED complaining of congestion, subjective fever, dry cough, sore throat x this morning. On exam VSS, NAD, nontoxic appearing, lungs CTA Please refer to course for remaining clinical decision making, interpretation of labs/imaging results, and discussions with consultants and/or family members. Differential Diagnosis Differential Diagnoses: The differential diagnosis associated with the presentation includes As above Lab Data MDM Lab Attestation statement: I reviewed the patient's lab results. Labs: Lab Results 12/13/24 Range/Units 11:20 Influenza Type A (PCR) NEGATIVE (Negative) Influenza Type B (PCR) NEGATIVE (Negative) RSV RNA Qual (PCR) NEGATIVE (Negative) SARS-CoV-2 RNA (RT-PCR) NEGATIVE (Negative) S. pyogenes GrpA RADHA Negative (Negative) Radiology Impression Discussion of test interpretation with radiology: I have reviewed the radiologist's reading. External Record Review External record reviewed: Inpatient record, Office record, Outpatient record, Prior outpatient labs, Prior outpatient radiology, Primary care record and Outside ED record Tests considered The following testing was considered but not selected: As above Discharge Plan Discharge Clinical Impression: Upper respiratory infection Patient Disposition: Home, Self-Care Instructions: Upper Respiratory Infection (DC) Additional Instructions: You have a virus No antibiotics are indicated at this time Make sure you are staying hydrated. Drink plenty of fluids. Rest Alternate Tylenol and Motrin at home as needed for body aches and fever Follow-up with your doctor. If symptoms persist or worsen return to the emergency department *If you are a child & not tolerating liquid or urinating for more than 6 hours, or fevers are uncontrolled with medications at home, return to the emergency department* Prescriptions: No Action erythromycin 5 mg/gram (0.5 %) ointment 0.5 inch ophthalmic (eye) BID 7 Days Qty: 3.5 0RF oxycodone 5 mg tablet 5 mg PO Q8H PRN (Reason: pain) Qty: 10 0RF Rx Instructions: Partial Fill upon patient request. albuterol sulfate [ProAir HFA] 90 mcg/actuation HFA aerosol inhaler 2 puff inhalation Q6H PRN (Reason: shortness of breath or wheezing) Qty: 6.7 0RF omeprazole 40 mg capsule,delayed release(DR/EC) 40 mg PO DAILY Qty: 15 0RF ketorolac 10 mg tablet 10 mg PO TID PRN (Reason: pain) 5 Days Qty: 15 0RF Rx Instructions: Received 1st dose intramuscularly in the emergency department and tolerated well. cyclobenzaprine 10 mg tablet 10 mg PO TID PRN (Reason: muscle spasm) Qty: 14 0RF jxrqhvatmq-etsfhdcttcaxb-wall [Fioricet] 50-300-40 mg capsule 1 cap PO TID PRN (Reason: pain) Qty: 14 0RF Referrals: [place] [Primary Care Provider] - Stand Alone Forms: Work/School Release Discharge Date/Time: 12/13/24 13:37 Print Language: Yakut
[2024-12-13 11:56] LABS: IDNOW Serial# 58CA691E; Strep A Nucleic Acid Negative (Negative)
[2024-12-13 12:16] LABS: Influenza A PCR NEGATIVE (Negative); Influenza B PCR NEGATIVE (Negative); Resp Syncy Virus RNA Qual PCR NEGATIVE (Negative); SARS COV2 PCR INHOUSE NEGATIVE (Negative)
--- NOTE | 2024-12-13 13:36 | PC.NURSE ---
PT WAS SEEN AND DISCHARGED BY TRIAGE PROVIDER
--- OUTSIDE RECORDS SUMMARY | 2024-12-13 13:41 | XMS_ITS | Encounter Summary ---
Author Organization [employer] Address [address] [facility] 7t [place] [address] Care Team Providers Care Golf Course Mechanic Name Role Phone Gretchen Duong MD Primary Care Provider [phone] Reason for Visit * Reason Onset Date Comments Results 11/28/2024 Encounter Details Date Type Department Care Team ([facility] Contact Info) Description 11/28/2024 Telephone [facility] [address] [place], [place] [phone] Cailin Emmanuel MA Results Social History Tobacco Use Types Packs/Day Years Used Date Smoking Tobacco: Some Days Cigarettes Passive Smoke Exposure: Current Smokeless Tobacco: Never Alcohol Use Standard Drinks/Week Comments Yes 3 (1 standard drink = 0.6 oz pur e alcohol) Alcohol Answer Date Recorded How often do you have a drink containing alcohol ? 1 11/28/2024 How many drinks containing a lcohol do you have on a typical day when you are drinking? 1 11/28/2024 How often do you have six or more drinks on one occasion? 0 11/28/2024 Depression Answer Date Recorded Patient Health Questionnaire-9 Score 12 11/22/2024 Patient Health Questionnaire-9 Score 12 11/22/2024 Last PHQ-9: Questionnaire Data Not on file 0 11/22/2024 Housing Stability Answer Date Recorded What is your housing situation today? I have evelia munroe 11/14/[address] you li ve. Do you have problems with any of the following? None of the above 11/14/2024 Food Insecurity Answer Date Recorded Within the past 12 months, y ou worried that your food would run out before you got money to buy more: Never True 11/14/2024 Within the past 12 months,th e food you bought just didn't last and you didn't have enough money to get more: Never True 12/2024 Transportation Answer Date Recorded In the past 12 months, has l ack of transportation kept you from medical appts, meetings, work or from getting things needed for daily living? No 11/14/2024 Utilities Answer Date Recorded In the past 12 months, has t he electric, gas, oil or water company threatened to shut off services in your home? No 11/14/2024 Depression Answer Date Recorded Patient Health Questionnaire-2 Score 4 11/22/2024 Internet Access Answer Date Recorded Internet Access Q1 Yes 11/14/2024 Internet Access Q2 Not on file 11/14/2024 Sex and Gender Information Value Date Recorded Sex Assigned at Male 09/12/2022 10:26 AM EDT Legal Sex Male 10:26 AM EDT Gender Identity Male 09/12/2022 10:26 AM EDT Sexual Orientation Choose not to disclose 2021 10:26 AM EDT documented as of this encounter Miscellaneous Notes * Telephone Encounter - Cailin Emmanuel MA - 11/28/2024 2:22 PM EST T/C placed to pt to notify per pcp that his labs were negative for infection, normal sugars, electrolytes, kidney, and liver function. were normal. Unable to LVM for pt to cb due to vm not being set up documented in this encounter Plan of Treatment Not on file documented as of this encounter Visit Diagnoses Not on filedocumented in this encounter Additional Health Concerns Assessment Noted Time PHQ-9 Depression Total Score: 12 025 2:16 PM EST documented as of this encounter Care Teams Golf Course Mechanic Relationship Specialty Start Date End Date Gretchen Duong MD [address] [place] [address] PCP - General Family Medicine 07/02/21 documented as of this encounter
--- OUTSIDE RECORDS SUMMARY | 2024-12-13 13:41 | XMS_ITS | Encounter Summary ---
Author Organization [employer] Address [address] [facility] [address] [place] [address] Care Team Providers Care Recruiting And Selection Consultant Name Role Phone Gretchen Duong MD Primary Care Provider [phone] Reason for Visit * Reason Onset Date Comments Results 11/25/2024 Encounter Details Date Type Department Care Team ([facility] Contact Info) Description 11/25/2024 Telephone [facility] MEDICINE [address] [place] [address] Maddy Porras RN [address] [place] [address] Results Social History Tobacco Use Types Packs/Day Years Used Date Smoking Tobacco: Some Days Cigarettes Passive Smoke Exposure: Current Smokeless Tobacco: Never Alcohol Use Standard Drinks/Week Comments Yes 3 (1 standard drink = 0.6 oz pur e alcohol) Depression Answer Date Recorded Patient Health Questionnaire-9 [...] encounter Miscellaneous Notes * Telephone Encounter - Maddy Porras RN - 11/25/2024 10:26 AM EST TC placed to patient [phone] via [employer] (Guy #[id number]) in regards to below message. Patient advised of below message. Patient verbalized understanding and did not have any further questions/concerns. ----- Message from Gretchen Duong MD sent at 11/25/2024 7:01 AM EST ----- Please let patient know that his labs all look healthy, except for bad cholesterol. Avoid animal fats/saturated fats. Otherwise liver, kidney, sugars, electrolytes, and STI panel are all normal! documented in this encounter Plan of Treatment Not on file documented as of this encounter Visit Diagnoses Not on filedocumented in this encounter Additional Health Concerns Assessment Noted Time PHQ-9 Depression Total Score: 12 025 2:16 PM EST documented as of this encounter Care Teams Recruiting And Selection Consultant Relationship Specialty Start Date End Date Gretchen Duong MD [address] [place] [phone] PCP - General Family Medicine 07/02/21 documented as of this encounter
--- OUTSIDE RECORDS SUMMARY | 2024-12-13 13:41 | XMS_ITS | Encounter Summary ---
Author Organization [employer] Address [address] [facility] 7[address] [place] [address] Care Team Providers Care Business Process Coordinator Name Role Phone Gretchen Duong MD Primary Care Provider [phone] Encounter Details Date Type Department Care Team ([facility] st Contact Info) Description 11/22/2024 1:45 PM EST Office Visit [facility] MEDICINE [address] [place] [address] Gretchen Dunog MD [address] [place] [address] Class 1 obesity with body mass index (BMI) of 34.0 to 34.9 in adult, unspecified obesity type, unspecified whether serious comorbidity present (Primary Dx); Overweight; Routine screening for STI (sexually transmitted infection); Encounter for immunization; Dietary counseling; Exercise counseling; Chronic gastritis without bleeding, unspecified gastritis type; Moderate major depression (CMS/HCC) Social History Tobacco Use Types Packs/Day Years [...] AM EDT documented as of this encounter Last Filed Vital Signs Vital Sign Reading Time Taken Comments Blood Pressure 120/90 11/22/2024 2:15 PM EST Pulse 82 11/22/2024 2:15 PM EST Temperature 36.2 ??C (97.2 ??F) 11/22/2024 2:15 PM ES T Respiratory Rate 17 11/22/2024 2:15 PM EST Oxygen Saturation - - Inhaled Oxygen Concentration - - Weight 90.5 kg (199 lb 8 oz) 11/22/2024 2:15 PM EST Height 162.6 cm (5' 4 ) 11/22/2024 2:15 PM EST Body Mass Index 34.24 11/22/2024 2:15 PM EST documented in this encounter Progress Notes * Gretchen Duong MD - 11/22/2024 1:45 PM EST Images from the original note were not included. SUBJECTIVE: Eddie Lee is a 38 y.o. year old male who presents for routine physical exam. Denies recent illness, ER visit, or hospitalization. Acute Concerns: 07/2021 last clinic visit Would like to have BE with today, does not disclose reason Notes blurry vision recently Ear canal irritation bilaterally Interim Updates: Stomach problems vomiting after taking pills, sometimes with blood in vomit, this has been happening since he was a teenager, especially if he lies down, no prior GI/EGD that he recalls 11/24/24 1430 RPR (Monitor) with Reflex to Titer Collected: 11/22/24 150 Final result Specimen: Blood, Venous RPR (Monitor) w/Refl Titer NON-REACTIVE Rapid Plasma Reagin Ab Titer TNP 11/23/24 0839 HIV-1/2 Antigen and Antibodies, Fourth Generation, with Reflexes Collected: 11/22/24 150 Final result Specimen: Blood, Venous HIV AB/AG Nonreactive 11/23/24 0839 Hepatitis C Antibody with Reflex to HCV, RNA, Quantitative, Real- Time PCR Collected: 11/22/24 150 Final result Specimen: Blood, Venous Hepatitis C Antibody Nonreactive 11/22/24 1630 Comprehensive Metabolic Panel Collected: 11/22/24 150 Final result Specimen: Blood, Venous Sodium 140 mmol/L Glucose 100 mg/dL Potassium 4.0 mmol/L Calcium 9.4 mg/dL Chloride 110 High mmol/L Bilirubin, Total 0.3 mg/dL Carbon Dioxide 25 mmol/L Aspartate Amino Transferase 25 U/L Anion Gap 9 Low Alanine Aminotransferase 35 U/L Urea Nitrogen (BUN) 14 mg/dL Total Protein 7.9 g/dL Creatinine, Serum 1.05 mg/dL Albumin Level 4.6 g/dL Estimated Glomerular Filt Rate >60 Alkaline Phosphatase 70 U/L 11/22/24 1630 Lipid Panel, Standard Collected: 11/22/24 150 Final result Specimen: Blood, Venous Triglycerides 60 mg/dL LDL Cholesterol Calculated 123 High mg/dL Cholesterol 190 mg/dL HDL Cholesterol 55 mg/dL 11/22/24 1623 Hemoglobin A1c Collected: 11/22/24 150 Final result Specimen: Blood, Venous Hemoglobin A1c 5.4 % Estimated Average Glucose 108 mg/dL Patient Active Problem List Diagnosis Gastritis Anxiety Moderate major depression (CMS/HCC) Class 1 obesity with body mass index (BMI) of 34.0 to 34.9 in adult History reviewed. No pertinent surgical history. No family history on file. 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 HENT: Positive for ear pain. Respiratory: Negative. Cardiovascular: Negative. Gastrointestinal: Negative. Musculoskeletal: Negative. Skin: Negative. Psychiatric/Behavioral: Positive for dysphoric mood. OBJECTIVE: Vitals: 11/22/24 1415 BP: 120/90 BP Location: Left arm Patient Position: Sitting BP Cuff Size: Adult Pulse: 82 Resp: 17 Temp: 97.2 ??F (36.2 ??C) TempSrc: Oral Weight: 199 lb 8 oz (90.5 kg) Height: 5' 4 (1.626 m) Physical Exam Vitals and nursing note reviewed. Constitutional: Appearance: Normal appearance. He is normal weight. HENT: Head: Normocephalic and atraumatic. Right Ear: Tympanic membrane and external ear normal. There is no impacted cerumen. Left Ear: Tympanic membrane and external ear normal. There is no impacted cerumen. Ears: Comments: Erythematous ear canals bilaterally Nose: Nose normal. Mouth/Throat: Mouth: Mucous membranes are moist. Pharynx: Oropharynx is clear. Cardiovascular: Rate and Rhythm: Normal rate and regular rhythm. Pulses: Normal pulses. Heart sounds: Normal heart sounds. Pulmonary: Effort: Pulmonary effort is normal. Breath sounds: Normal breath sounds. Musculoskeletal: Cervical back: Normal range of motion and neck supple. Skin: General: Skin is warm and dry. Capillary Refill: Capillary refill takes less than 2 seconds. Neurological: General: No focal deficit present. Mental Status: He is alert and oriented to person, place, and time. Psychiatric: Mood and Affect: Mood normal. Behavior: Behavior normal. ASSESSMENT/PLAN Problem List Items Addressed This Visit Gastritis Moderate major depression (CMS/HCC) Class 1 obesity with body mass index (BMI) of 34.0 to 34.9 in adult - Primary Relevant Orders Hemoglobin A1c (Completed) Lipid Panel, Standard (Completed) Comprehensive Metabolic Panel (Completed) Other Visit Diagnoses Overweight Routine screening for STI (sexually transmitted infection) Relevant Orders Chlamydia/N. Gonorrhoeae RNA, TMA, Urogenitial (Completed) HIV-1/2 Antigen and Antibodies, Fourth Generation, with Reflexes (Completed) Hepatitis C Antibody with Reflex to HCV, RNA, Quantitative, Real-Time PCR (Completed) RPR (Monitor) with Reflex to Titer (Completed) Encounter for immunization Relevant Orders FLU VACCINE TRIVALENT (Fluarix) 6 mo + (Completed) Dietary counseling Exercise counseling Follow Up: 6 months or sooner prn No Known Allergies Current Outpatient Medications: ivaibyvn-xucmmacqu-drxjmpsmishtgh (Cortisporin) [id number] otic suspension, Administer 3-4 drops into affected ear(s) 4 times daily for 10 days., Disp: 10 mL, Rfl: 0 Sinhala Translation: Provided by [facility] staff member NOHEMI Simeon documented in this encounter Miscellaneous Notes * Result Encounter Note - Gretchen Duong MD - 11/22/2024 1:45 PM EST Please let patient know that his labs all look healthy, except for bad cholesterol. Avoid animal fats/saturated fats. Otherwise liver, kidney, sugars, electrolytes, and STI panel are all normal! documented in this encounter Plan of Treatment Not on file documented as of this encounter Procedures Procedure Name Priority Date/Time Associated Diagnosis Comments HEPATITIS C AB W/REFL TO HCV RNA, QN, PCR Routine 11/22/2024 3:06 PM EST Routine screening for STI (sexually transmitted infection) CHLAMYDIA/N. GONORRHOEAE RNA, TMA, UROGENITAL Routine 11/22/2024 3:06 PM EST Routine screening for STI (sexually transmitted infection) RPR (MONITOR) W/REFL TITER Routine 11/22/2024 3:06 PM EST Routine screening for STI (sexually transmitted infection) HIV 1/2 ANTIGEN/ANTIBODY, FOURTH GENERATION W/RFL Routine 11/22/2024 3:06 PM EST Routine screening for STI (sexually transmitted infection) HEMOGLOBIN A1C Routine 11/22/2024 3:06 PM EST Class 1 obesity with body mass index (BMI) of 34.0 to 34.9 in adult, unspecified obesity type, unspecified whether serious comorbidity present LIPID PANEL, STANDARD Routine 11/22/2024 3:06 PM EST Class 1 obesity with body mass index (BMI) of 34.0 to 34.9 in adult, unspecified obesity type, unspecified whether serious comorbidity present COMPREHENSIVE METABOLIC PANEL Routine 11/22/2024 3:06 PM EST Class 1 obesity with body mass index (BMI) of 34.0 to 34.9 in adult, unspecified obesity type, unspecified whether serious comorbidity present documented in this encounter Results * RPR (Monitor) with Reflex to??Titer (11/22/2024 3:06 PM EST) RPR (Monitor) w/Refl Titer NON-REACTI VE NON-REACT [facility] Comment:THIS TEST WAS PERFOR MED AT:[facility] [address] [id number] HENRY MD Rapid Plasma Reagin Ab Titer TNP [facility] Blood Venous blood specimen / Unknown 11/22/2024 3:06 PM EST 11/22/2024 4:04 PM EST us Gretchen Duong MD LAB BLOOD ORDERABLES Final Res ult [facility] [address] [place] [address] [phone] * Hepatitis C Antibody with Reflex to HCV, RNA, Quantitative, Real-Time PCR (11/22/2024 3:06 PM EST) Hepatitis C Antibody Nonreactive Nonreactive [facility] Comment:Antibodies to HCV no t detected; does not exclude early acuteHCV infection. Blood Venous blood specimen / Unknown 11/22/2024 3:06 PM EST 11/22/2024 4:04 PM EST Gretchen Duong MD LAB BLOOD ORDERABLES Final Res ult Performing Organization Address [facility] Co de Phone Number [facility] [address] [place] [address] [phone] * HIV-1/2 Antigen and Antibodies, Fourth Generation, with Reflexes (11/22/2024 3:06 PM EST) [facility] HIV AB/AG Nonreactive Nonreactive [facility] Comment:HIV-1 p24 Ag and/or HIV-1/HIV-2 Ab not detected.A test result that is nonreactive does not exclude thepossibility of exposure to or infection with HIV-1 and/orHIV-2. Nonreactive results in this assay for individualswith prior exposure to HIV-1 and/or HIV-2 may be due toantigen and antibody levels that are below the limit ofdetection of this assay.The [email or web address] HIV Ag/Ab Combo assay result andsupplemental assay results should be interpreted inconjunction with the patient's clinical presentation,history and other laboratory results. If the results areinconsistent with clinical evidence, additional testing issuggested to confirm the result. Blood Venous blood specimen / Unknown 11/22/2024 3:06 PM EST 11/22/2024 4:04 PM EST Gretchen Duong MD LAB BLOOD ORDERABLES Final Res ult Performing Organization Address [facility] Co de Phone Number [facility] [address] [place] [address] [phone] * Chlamydia/N. Gonorrhoeae RNA, TMA, Urogenitial (11/22/2024 3:06 PM EST) [facility] CT PCR NOT DETECTED Not Detect. [facility] Comment:A not detected test result does not exclude the possibilityof infection because test results can be affected byimproper specimen collection, concurrent antibiotic therapy,or the number of organisms in the specimen which may bebelow the sensitivity of the test. As with many diagnostictests, results from the Xpert CT/NG assay should beinterpreted in conjunction with other laboratory andclinical data available to the clinician.Xpert CT/NG performance has not been evaluated in patientsless than 14 years of age. The assay should not be used forthe evaluationof suspected sexual abuse or for other medico-legalindications. Additional testing is recommended in anycircumstance when false positive or false negative resultscould lead to adverse medical, social or psychologicalconsequences. NG PCR NOT DETECTED Not Detect. [facility] Comment:A not detected test result does not exclude the possibilityof infection because test results can be affected byimproper specimen collection, concurrent antibiotic therapy,or the number of organisms in the specimen which may bebelow the sensitivity of the test. As with many diagnostictests, results from the Xpert CT/NG assay should beinterpreted in conjunction with other laboratory andclinical data available to the clinician.Xpert CT/NG performance has not been evaluated in patientsless than 14 years of age. The assay should not be used forthe evaluationof suspected sexual abuse or for other medico-legalindications. Additional testing is recommended in anycircumstance when false positive or false negative resultscould lead to adverse medical, social or psychologicalconsequences. Urine (Urine, Random) 11/22/2024 3:06 PM EST 11/22/2024 4:00 PM EST Narrative [facility] - 11/23/2024 3:59 AM EST Urine us Gretchen Duong MD LAB MICROBIOLOGY - GENERAL ORD ERABLES Final Result [facility] [address] [place], [place] [phone] * (ABNORMAL) Comprehensive Metabolic Panel (11/22/2024 3:06 PM EST) Sodium 140 135 - 145 mmol/L [facility] Potassium 4.0 3.3 - 5.1 mmol/L [facility] Chloride 110(H) 96 - 108 mmol/L [facility] Carbon Dioxide 25 22 - 29 mmol/L [facility] Anion Gap 9(L) 12 - 20 [facility] Urea Nitrogen (BUN) 14 9 - 16 mg/dL [facility] Creatinine, Serum 1.05 0.5 - 1.4 mg/dL [facility] Estimated Glomerular Filt Rate >60 [facility] Comment:Chronic Kidney Disea se: Estimated GFR < 60 mL/min/1.14g0Bptjum Kidney Disease: Estimated GFR < 15 mL/min/1.73m2 Glucose 100 60 - 115 mg/dL [facility] Calcium 9.4 8.4 - 10.2 mg/dL [facility] Bilirubin, Total 0.3 0.0 - 1.0 mg/dL [facility] Aspartate Amino Transferase 25 5 - 37 U/L [facility] Alanine Aminotransferase 35 0 - 40 U/L [facility] Total Protein 7.9 6.5 - 8.0 g/dL [facility] Albumin Level 4.6 3.5 - 5.0 g/dL [facility] Alkaline Phosphatase 70 39 - 117 U/L [facility] Blood Venous blood specimen / Unknown 11/22/2024 3:06 PM EST 11/22/2024 4:04 PM EST us Gretchen Duong MD LAB BLOOD ORDERABLES Final Res ult [facility] [address] [place], [place] [phone] * (ABNORMAL) Lipid Panel, Standard (11/22/2024 3:06 PM EST) Triglycerides 60 <150 mg/dL [facility] Comment:Desirable Triglyceri de: less than 150 mg/dLBorderline High Triglyceride 150-199 mg/dLHigh Triglyceride: 200-499 mg/dLVery High Triglyceride: greater than or equal to 5OO mg/dL Cholesterol 190 <200 mg/dL [facility] Comment:Desirable Cholestero l: less than 200 mg/dLBorderline High Cholesterol: 200-239 mg/dLHigh Cholesterol: greater than 239 mg/dL LDL Cholesterol Calculated 123(H) <100 mg/dL [facility] Comment:Desirable LDL: less than 100 mg/dLNear Optimal/Above Optimal LDL: 110- 129 mg/dLBorderline High LDL: 130-159 mg/dLHigh LDL: 160-189 mg/dLVery High LDL: greater than or equal to 190 mg/dL HDL Cholesterol 55 >40 mg/dL [facility] Comment:Desirable HDL: great er than 40 mg/dL Note: This HDL assay may give artificially low results in patients with liver disease. Blood Venous blood specimen / Unknown 11/22/2024 3:06 PM EST 11/22/2024 4:04 PM EST us Gretchen Duong MD LAB BLOOD ORDERABLES Final Res ult Performing Organization Address [facility] Co de Phone Number [facility] [address] [place] [phone] * Hemoglobin A1c (11/22/2024 3:06 PM EST) Hemoglobin A1c 5.4 <6.0 % [facility] Comment:Hemoglobin A1C Refer ence Range Adults: 4.8 - 6.0 % Non diabetic: < 6.0 % Goal: < 7.0 %Additional Action Suggested: > 8.0 %Note: Hemoglobin A1c results are invalid for patients with abnormal amounts of HbF. Blood transfusions may impact the HbA1c concentration in the patient sample. Estimated Average Glucose 108 mg/dL [facility] Comment:eAG = Estimated ave rage glucose which is %A1C expressed asaverage glucose, using the formula of the [id number] Glucose study (ADAG), Diabetes Care, Vol.31,#8,Jun. 2007 Blood Venous blood specimen / Unknown 11/22/2024 3:06 PM EST 11/22/2024 4:04 PM EST Gretchen Duong MD LAB BLOOD ORDERABLES Final Res ult Performing Organization Address [facility] Co de Phone Number [facility] [address] [place] [phone] documented in this encounter Visit Diagnoses Diagnosis Class 1 obesity with body mass index (BMI) of 34.0 to 34.9 in adult, unspecified obesity type, unspecified whether serious comorbidity present- Primary Overweight Routine screening for STI (sexually transmitted infection) Screening examination for venereal disease Encounter for immunization Dietary counseling Dietary surveillance and counseling Exercise counseling Chronic gastritis without bleeding, unspecified gastritis type Moderate major depression ([facility]) Major depressive disorder, single episode, moderate documented in this encounter Additional Health Concerns Assessment Noted Time PHQ-9 Depression Total Score: 12 025 2:16 PM EST documented as of this encounter Care Teams Business Process Coordinator Relationship Specialty Start Date End Date Gretchen Duong MD [address] [place] [phone] PCP - General Family Medicine 07/02/21 documented as of this encounter
--- OUTSIDE RECORDS SUMMARY | 2024-12-13 13:41 | XMS_ITS | Clinical Summary ---
Author Organization [employer] Address [address] [facility] 7t [place] [address] Care Team Providers Care Intercell Connector Placer Name Role Phone Gretchen Duong MD Primary Care Provider [phone] Allergies No known active allergies Medications * This document contains information received from the source organization and may not represent a complete record from that organization. acetaminophen (Tylenol) 500 MG tablet Take 1 tablet by mouth every 12 (twelve) hours. 2 11/28/19 25 Discontinu ed(Therapy completed) ibuprofen 800 MG tablet Take 1 tablet by mouth every 8 (eight) hours. 1 11/28/19 Discontinu ed(Therapy completed) sodium chloride ([place]) 0.65 % nasal spray 1-2 spray on each nostril every 2-3 hours as needed for nasal congestion 2 11/28/19 25 Discontinu ed(Therapy completed) ciprofloxacin- dexAMETHasone (CiproDEX) otic suspension Administer 4 drops into affected ear(s) at bedtime for 7 days. 7.5 mL 5 11/25/19 25 Discontinu ed(Cost of medication ) ciprofloxacin- hydrocortisone (Cipro HC Otic) otic suspension Administer 3 drops into each ear at bedtime for 7 days. 20 mL 5 11/28/19 25 Discontinu ed(Formula ry change) neomycin-polym yxin-hydrocort isone (Cortisporin) 3.5-78333-7 otic suspension Administer 3-4 drops into affected ear(s) 4 times daily for 10 days. 10 mL 5 12/08/19 25 Active Problems Problem Noted Date Diagnosed Date Class 1 obesity with body ma ss index (BMI) of 34.0 to 34.9 in adult 11/28/2024 Anxiety 11/22/2024 Moderate major depression 11/22/2024 Gastritis 07/02/2021 Encounters * This document contains information received from the source organization and may not represent a complete record from that organization. Date Type Department Care Team Description 12/13/2024 Orders Only [facility] External Provider, [facility] 11/28/2024 Telephone [facility] [address] [place] [phone] Cailin Emmanuel MA Results 11/28/2024 Orders Only [address] [address] Saige Strong MD 11/28/[address] [address] Gretchen Duong MD Prior Authorization 11/25/2024 Orders Only [address] [address] Gretchen Duong MD 11/25/[address] [address] Maddy Porras, OZZY Results 11/24/[address] [address] Gretchen Duong MD 11/22/2024 1:45 PM EST Office Visit [address] [address] Gretchen Duong MD Class 1 obesity with body mass index (BMI) of 34.0 to 34.9 in adult, unspecified obesity type, unspecified whether serious comorbidity present (Primary Dx); Overweight; Routine screening for STI (sexually transmitted infection); Encounter for immunization; Dietary counseling; Exercise counseling; Chronic gastritis without bleeding, unspecified gastritis type; Moderate major depression ([facility]) 11/22/2024 Travel 11/14/2024 Patient Outreach [facility] [address] [place] [phone] Gretchen Duong MD Pre-visit Planning (SDOH screening negative and tobacco screening negative) from Last 3 Months Immunizations Name Administration Dates Next Due Hep B, adult 05/28/2019 Influenza injectable quadrivalent preservative f ree 01/26/2024 Influenza, seasonal, injectable, preservative fr ee 11/22/2024 Pfizer Covid-19 Vaccine 12+ 01/26/2024 TD (adult), 2 Lf tetanus tox oid, preservative free, adsorbed 08/29/2019 Tdap 03/26/2019 Social History Tobacco Use Types Packs/Day Years [...] not to disclose 2021 10:26 AM EDT Last Filed Vital Signs Vital Sign Reading [...] Mass Index 34.24 11/22/2024 2:15 PM EST Plan of Treatment Health Maintenance Due Date Last Done Comments Family Planning (PISQ) 2001 Pneumococcal Vaccine: Pediatrics (0 to 5 Years) and At-Risk Patients (6 to 49) Years) (1 of 2 - PCV) 2005 Hepatitis B Vaccines (2 of 3 - 19+ 3-dose series) 06/25/2019 05/28/2019 COVID-19 Vaccine ( - 2023-2 5 season) 2024 01/26/2024, 03/17/2021 Depression Monitoring (PHQ-9) 05/22/2025, 11/22/2024 SDOH Screening 11/14/2025 11/14/2024 Depression Screening 11/22/2025 11/22/2024, 11/22/2024 Alcohol/Substance Use Screening 11/28/2025 11/28/2024 Tobacco Screening 11/28/2025 11/28/2024 DTaP/Tdap/Td Vaccines (3 - T d or Tdap) 08/29/2029 08/29/2019, 03/26/2019 Lipid Panel 11/22/2029 11/22/2024 Zoster Vaccines (1 of 2) 2036 RSV Patients and Patients Aged 60 years or older (1 - 1-dose 75+ series) 2061 HIV Screening Completed 11/22/2024, 07/02/2021 Hepatitis C Screening Completed 11/22/2024 , 07/02/2021 Influenza Vaccine Completed 11/22/2024, 01/26/2024 HIB Vaccines Aged Out No longer eligi ble based on patient's age to complete this topic HPV Vaccines Aged Out No longer eligi ble based on patient's age to complete this topic Hepatitis A Vaccines Aged Out No long er eligible based on patient's age to complete this topic IPV Vaccines Aged Out No longer eligi ble based on patient's age to complete this topic Meningococcal Vaccine Aged Out No nikhil lena eligible based on patient's age to complete this topic RSV under 20 months Aged Out No longe r eligible based on patient's age to complete this topic Rotavirus Vaccines Aged Out No longer eligible based on patient's age to complete this topic Procedures Procedure Name Priority Date/Time Associated Diagnosis Comments SARS COV2/INFLUENZA A/B AND RSV RNA QL NAAT Routine 12/13/2024 11:20 AM EST STREP A NUCLEIC ACID Routine 12/13/2024 11:20 AM EST XR CHEST 2 VIEWS Routine 12/13/2024 11:1 1 AM EST RPR (MONITOR) W/REFL TITER Routine 11/22/2024 3:06 PM EST Routine screening for STI (sexually transmitted infection) HEPATITIS C AB W/REFL TO HCV RNA, QN, PCR Routine 11/22/2024 3:06 PM EST Routine screening for STI (sexually transmitted infection) HIV 1/2 ANTIGEN/ANTIBODY, FOURTH GENERATION W/RFL Routine 11/22/2024 3:06 PM EST Routine screening for STI (sexually transmitted infection) COMPREHENSIVE METABOLIC PANEL Routine 11/22/2024 3:06 PM EST Class 1 obesity with body mass index (BMI) of 34.0 to 34.9 in adult, unspecified obesity type, unspecified whether serious comorbidity present LIPID PANEL, STANDARD Routine 11/22/2024 3:06 PM EST Class 1 obesity with body mass index (BMI) of 34.0 to 34.9 in adult, unspecified obesity type, unspecified whether serious comorbidity present HEMOGLOBIN A1C Routine 11/22/2024 3:06 PM EST Class 1 obesity with body mass index (BMI) of 34.0 to 34.9 in adult, unspecified obesity type, unspecified whether serious comorbidity present CHLAMYDIA/N. GONORRHOEAE RNA, TMA, UROGENITAL Routine 11/22/2024 3:06 PM EST Routine screening for STI (sexually transmitted infection) from Last 3 Months Results * Strep A Nucleic Acid (12/13/2024 11:20 AM EST) IDNOW SERIAL# [id number] [facility] Strep A Nucleic Acid Negative Negative [facility] Comment:All test results mus t be correlated with clinical findings.This test has not been evaluated for monitoring treatment ofinfection.Additional follow-up testing using the culture method isrequired if the result is negative and clinical symptomspersist, or in the event of an acute rheumatic feveroutbreak. 12/13/2024 11:2 0 AM EST 12/13/2024 11:31 AM EST us Generic External Data Provider LAB MICROBIOLOGY - GENERAL ORDERABLES Final Result [facility] [address] [place] [phone] * SARS-CoV-2 RNA, Influenza A/B, and RSV RNA, Ql NAAT (12/13/2024 11:20 AM EST) Influenza A PCR NEGATIVE Negative [facility] Influenza B PCR NEGATIVE Negative [facility] Resp Syncy Virus RNA Qual PCR NEGATIVE Negative [facility] SARS COV2 PCR NEGATIVE Negative [facility] Comment:All test results mus t be correlated with clinical findings.Negative results do not preclude SARS-CoV2, influenza Avirus, influenza B virus and/or RSV infectionand should not be used as the sole basis for treatment orother patient management decisions. Negative results must becombined with clinical observations, patient history, andepidemiological information.This test has not been evaluated for monitoring treatment ofinfection.This test has been authorized by the FDA under an EmergencyUse Authorization (EUA) for use by authorized laboratories.Testing performed on the ActiveTra[employer] GeneXpert utilizingreal-time RT-PCR.All SARS CoV2 and positive influenza A/B results arereported to [facility]. 12/13/2024 11:2 0 AM EST 12/13/2024 11:31 AM EST us Generic External Data Provider LAB MICROBIOLOGY - GENERAL ORDERABLES Final Result Performing Organization Address [facility]/State/[facility] Co de Phone Number [facility] [address] [place] [phone] * XR Chest 2 Views (12/13/2024 11:11 AM EST) Anatomical Region Laterality Modality Chest Radiographic Rachael ging 12/13/2024 11:1 1 AM EST Narrative 12/13/2024 11:47 AM EST ? [facility] ?[address] ?[place] [address] ?XRay Report ? Signed ? Patient: Eddie Conrad ?MR#: [id number] ?? [id number] ? : 1985 ?Acct:[id number] ? Age/Sex: 39 / M ?ADM Date: 12/13/24 ? Loc: HO.ED ? Attending Dr: ? Ordering Physician: Larissa Richard ?? Date of Service: 12/13/24 ?? Procedure(s): XR chest 2V ?? Accession Number(s): [id number] ? cc: [facility]; Larissa Richard ? EXAMINATION: ?? XR CHEST ? CLINICAL INFORMATION: ?? prod cough ? COMPARISON: ?? 11/18/2021. ? TECHNIQUE: ?? 2 views of the chest were obtained. ? FINDINGS: ?? The cardiac, hilar, and mediastinal contours are normal. ? The lungs are clear bilaterally. There is no pneumothorax or pleural ?? effusion. ? There is no focal osseous or soft tissue abnormality. There is a mild ?? to moderate right convex thoracic scoliosis. ? XR/XR chest 2V ?? IMPRESSION: ?? No active pulmonary disease. No change from 11/18/2021. ? Electronically signed by: ??Milton Hernández MD ??12/13/2024 11:44 AM EST RP ? Dictated By: ?Milton Hernández MD ? Signed By: ?<Electronically signed by Milton Hernández MD in OV> ?12/13/24 1144 ? DD/ 1111 ? TD/TT: 12/13/24 1139 ? Traffic Enumerator: ? Procedure Note Donotnnamdimauriceter, Image - 12/13/2024 [place] [address] XRay Report Signed Patient: [place] Conrad#: [id number] : 1985Acct:[id number] Age/Sex: 39 / MADM Date: 12/13/24 Loc: HO.ED Attending Dr: Ordering Physician: Larissa Richard Date of Service: 12/13/24 Procedure(s): XR chest 2V Accession Number(s): [id number] cc: [facility]; Larissa Richard EXAMINATION: XR CHEST CLINICAL INFORMATION: prod cough COMPARISON: 11/18/2021. TECHNIQUE: 2 views of the chest were obtained. FINDINGS: The cardiac, hilar, and mediastinal contours are normal. The lungs are clear bilaterally. There is no pneumothorax or pleural effusion. There is no focal osseous or soft tissue abnormality. There is a mild to moderate right convex thoracic scoliosis. XR/XR chest 2V IMPRESSION: No active pulmonary disease. No change from 11/18/2021. Electronically signed by: Milton Hernández MD 12/13/2024 11:44 AM EST Dictated By: Milton Hernández MD Signed By: <Electronically signed by Milton Hernández MD in OV> 12/13/24 1144 DD/ 1111 TD/TT: 12/13/24 1139 Traffic Enumerator: [facility] External Provider IMG XR PROCEDURES Final Result * Hepatitis C Antibody with Reflex to HCV, RNA, Quantitative, Real-Time PCR (11/22/2024 3:06 PM EST) Hepatitis C Antibody Nonreactive Nonreactive [facility] Comment:Antibodies to HCV no t detected; does not exclude early acuteHCV infection. Blood Venous blood specimen / Unknown 11/22/2024 3:06 PM EST 11/22/2024 4:04 PM EST Gretchen Duong MD LAB BLOOD ORDERABLES Final Res ult [facility] [address] [place] [address] [phone] * Chlamydia/N. Gonorrhoeae RNA, TMA, Urogenitial (11/22/2024 3:06 PM EST) Pathologist [facility] CT PCR NOT DETECTED Not Detect. [facility] Comment:A not detected test result [...] psychologicalconsequences. NG PCR NOT DETECTED Not Detect. [facility] Comment:A not detected test result [...] PM EST 11/22/2024 4:00 PM EST Narrative [facility] - 11/23/2024 3:59 AM EST Urine Gretchen Duong MD LAB MICROBIOLOGY - GENERAL ORD ERABLES Final Result Performing Organization Address [facility]/ZIP Co de Phone Number [facility] [address] [place] [phone] * RPR (Monitor) with Reflex to??Titer (11/22/2024 3:06 PM EST) RPR (Monitor) w/Refl Titer NON-REACTI VE NON-REACT MALORIE [facility] Comment:THIS TEST WAS PERFOR MED AT:[employer] [place] [phone] HENRY MD Rapid Plasma Reagin Ab Titer TNP [facility] Blood Venous blood specimen / Unknown 11/22/2024 3:06 PM EST 11/22/2024 4:04 PM EST Gretchen Duong MD LAB BLOOD ORDERABLES Final Res ult Performing Organization Address [facility]/ZIP Co de Phone Number [facility] [address] [place] [phone] * HIV-1/2 Antigen and Antibodies, Fourth Generation, with Reflexes (11/22/2024 3:06 PM EST) HIV AB/AG Nonreactive Nonreactive [facility] Comment:HIV-1 p24 Ag and/or HIV-1/HIV-2 Ab not detected.A test result that is nonreactive does not exclude thepossibility of exposure to or infection with HIV-1 and/orHIV-2. Nonreactive results in this assay for individualswith prior exposure to HIV-1 and/or HIV-2 may be due toantigen and antibody levels that are below the limit ofdetection of this assay.The eSolar HIV Ag/Ab Combo assay result andsupplemental assay results should be interpreted inconjunction with the patient's clinical presentation,history and other laboratory results. If the results areinconsistent with clinical evidence, additional testing issuggested to confirm the result. Blood Venous blood specimen / Unknown 11/22/2024 3:06 PM EST 11/22/2024 4:04 PM EST us Gretchen Duong MD LAB BLOOD ORDERABLES Final Res ult Performing Organization Address [facility] Co de Phone Number [facility] [address] [place] [phone] * Hemoglobin A1c (11/22/2024 3:06 PM EST) Hemoglobin A1c 5.4 <6.0 % [facility] Comment:Hemoglobin A1C Refer ence Range Adults: 4.8 - 6.0 % Non diabetic: < 6.0 % Goal: < 7.0 %Additional Action Suggested: > 8.0 %Note: Hemoglobin A1c results are invalid for patients with abnormal amounts of HbF. Blood transfusions may impact the HbA1c concentration in the patient sample. Estimated Average Glucose 108 mg/dL [facility] Comment:eAG = Estimated ave rage glucose which is %A1C expressed asaverage glucose, using the formula of the O6F-KmqdyxeNvmpzlc Glucose study (ADAG), Diabetes Care, Vol.31,#8,Jun. 2007 Blood Venous blood specimen / Unknown 11/22/2024 3:06 PM EST 11/22/2024 4:04 PM EST Gretchen Duong MD LAB BLOOD ORDERABLES Final Res ult Performing Organization Address [facility] de Phone Number [facility] [address] [place] [phone] * (ABNORMAL) Lipid Panel, Standard (11/22/2024 3:06 PM EST) Triglycerides 60 <150 mg/dL [facility] Comment:Desirable Triglyceri de: less than 150 mg/dLBorderline High Triglyceride 150-199 mg/dLHigh Triglyceride: 200-499 mg/dLVery High Triglyceride: greater than or equal to 5OO mg/dL Cholesterol 190 <200 mg/dL [facility] Comment:Desirable Cholestero l: less than 200 mg/dLBorderline High Cholesterol: 200-239 mg/dLHigh Cholesterol: greater than 239 mg/dL LDL Cholesterol Calculated 123(H) <100 mg/dL [facility] Comment:Desirable LDL: less than 100 mg/dLNear Optimal/Above Optimal LDL: 110- 129 mg/dLBorderline High LDL: 130-159 mg/dLHigh LDL: 160-189 mg/dLVery High LDL: greater than or equal to 190 mg/dL HDL Cholesterol 55 >40 mg/dL [facility] Comment:Desirable HDL: great er than 40 mg/dL Note: This HDL assay may give artificially low results in patients with liver disease. Blood Venous blood specimen / Unknown 11/22/2024 3:06 PM EST 11/22/2024 4:04 PM EST Gretchen Duong MD LAB BLOOD ORDERABLES Final Res ult Performing Organization Address [facility] Co de Phone Number [facility] [address] [place] [phone] * (ABNORMAL) Comprehensive Metabolic Panel (11/22/2024 3:06 PM EST) Sodium 140 135 - 145 mmol/L [facility] Potassium 4.0 3.3 - 5.1 mmol/L [facility] Chloride 110(H) 96 - 108 mmol/L [facility] Carbon Dioxide 25 22 - 29 mmol/L [facility] Anion Gap 9(L) 12 - 20 [facility] Urea Nitrogen (BUN) 14 9 - 16 mg/dL [facility] Creatinine, Serum 1.05 0.5 - 1.4 mg/dL [facility] Estimated Glomerular Filt Rate >60 [facility] Comment:Chronic Kidney Disea se: Estimated GFR < 60 mL/min/1.84y2Ialdcz Kidney Disease: Estimated GFR < 15 mL/min/1.73m2 Glucose 100 60 - 115 mg/dL [facility] Calcium 9.4 8.4 - 10.2 mg/dL [facility] Bilirubin, Total 0.3 0.0 - 1.0 mg/dL [facility] Aspartate Amino Transferase 25 5 - 37 U/L [facility] Alanine Aminotransferase 35 0 - 40 U/L [facility] Total Protein 7.9 6.5 - 8.0 g/dL [facility] Albumin Level 4.6 3.5 - 5.0 g/dL [facility] Alkaline Phosphatase 70 39 - 117 U/L [facility] Blood Venous blood specimen / Unknown 11/22/2024 3:06 PM EST 11/22/2024 4:04 PM EST us Gretchen Duong MD LAB BLOOD ORDERABLES Final Res ult [facility] [address] [place] [phone] from Last 3 Months Insurance [facility] C3 HSN PARTIAL Care Teams Intercell Connector Placer Relationship Specialty Start Date End Date Gretchen Duong MD [address] [place] [address] PCP - General Family Medicine 07/02/21
--- OUTSIDE RECORDS SUMMARY | 2024-12-13 13:41 | XMS_ITS | Encounter Summary ---
Author Organization [employer] Address [address] [facility] [address]t [place] [address] Care Team Providers Care Estate Planning Counselor Name Role Phone Gretchen Duong MD Primary Care Provider [phone] Reason for Visit * Reason Comments Pre-visit Planning SDOH screening negat tamera and tobacco screening negative Encounter Details Date Type Department Care Team ([facility] Contact Info) Description 11/14/2024 Patient Outreach [facility] [address] [place] [address] Gretchen Duong MD [address] [place] [address] Pre-visit Planning (SDOH screening negative and tobacco screening negative) Social History Tobacco Use Types Packs/Day Years Used Date Smoking Tobacco: Never Assessed Housing Stability Answer Date Recorded What is [...] off services in your home? No 11/14/2024 Internet Access Answer Date Recorded Internet Access Q1 Yes 11/14/2024 Internet Access Q2 Not on file 11/14/2024 Sex and Gender Information Value Date Recorded Sex Assigned at Male 09/12/2022 10:26 AM EDT Legal Sex Male 10:26 AM EDT Gender Identity Male 09/12/2022 10:26 AM EDT Sexual Orientation Choose not to disclose 2021 10:26 AM EDT documented as of this encounter Progress Notes * Samantha Palomo - 11/14/2024 2:39 PM EST CC Samantha placed successful outbound call to patient for pre-visit planning. Patient name and confirmed. Patient confirms appt date and time, and has transportation. Biggest concern for appointment at this time is none Patient advised to bring to appointment a photo id and insurance card. Appropriate screenings completed in anticipation of appointment. documented in this encounter Plan of Treatment Not on file documented as of this encounter Visit Diagnoses Not on filedocumented in this encounter Care Teams Estate Planning Counselor Relationship Specialty Start Date End Date Gretchen Duong MD [address] [place] [address] PCP - General Family Medicine 07/02/21 documented as of this encounter
--- OUTSIDE RECORDS SUMMARY | 2024-12-13 13:41 | XMS_ITS | Encounter Summary ---
Author Organization [employer] Address [address] [facility] [address]t [place] [address] Care Team Providers Care Machine Or Machinery Mechanic Name Role Phone Gretchen Duong MD Primary Care Provider [phone] Reason for Visit * Reason Comments Med Change Request Encounter Details Date Type Department Care Team ([facility] st Contact Info) Description 11/24/2024 Refill [facility] [address] [place] [address] Gretchen Duong MD [address] [place] [address] Social History Tobacco Use Types Packs/Day Years [...] Telephone Encounter - Maddy Porras RN - 11/26/2024 8:43 AM EST TC placed to patient [phone] in regards to below message via [employer] (#[id number]). Patient informed PCP has sent an alternative medication to the pharmacy. Patient verbalized understanding.Patient to f/u PRN. documented in this encounter Plan of Treatment Not on file documented as of this encounter Visit Diagnoses Not on filedocumented in this encounter Additional Health Concerns Assessment Noted Time PHQ-9 Depression Total Score: 12 025 2:16 PM EST documented as of this encounter Care Teams Machine Or Machinery Mechanic Relationship Specialty Start Date End Date Gretchen Duong MD [address] [place] [phone] PCP - General Family Medicine 07/02/21 documented as of this encounter
--- OUTSIDE RECORDS SUMMARY | 2024-12-13 13:41 | XMS_ITS | Encounter Summary ---
Author Organization [employer] Address [address] [facility] [address]t [place] [address] Care Team Providers Care Oil And Gas Exploration Technician Name Role Phone Gretchen Duong MD Primary Care Provider [phone] Encounter Details Date Type Department Care Team (Latest Contact Info) Description 11/22/2024 Travel Social History Tobacco Use Types Packs/Day Years [...] AM EDT documented as of this encounter Plan of Treatment Not on file documented as of this encounter Visit Diagnoses Not on filedocumented in this encounter Additional Health Concerns Assessment Noted Time PHQ-9 Depression Total Score: 12 025 2:16 PM EST documented as of this encounter Care Teams Oil And Gas Exploration Technician Relationship Specialty Start Date End Date Gretchen Duong MD [address] [place] [address] PCP - General Family Medicine 07/02/21 documented as of this encounter
--- OUTSIDE RECORDS SUMMARY | 2024-12-13 13:42 | XMS_ITS | Encounter Summary ---
Author Organization [employer] Address [address] [place] [address] Care Team Providers Care Access Control Specialist Name Role Phone Gretchen Duong MD Primary Care Provider Encounter Details Date Type Department Care Team ([facility] st Contact Info) Description 11/28/[address] [facility] [address] [place] [address] Saige Strong MD [address] [place] [address] Social History Tobacco Use Types Packs/Day Years [...] as of this encounter Progress Notes * Saige Strong MD - 11/28/2024 11:29 AM EST Cipro HC otic not covered by insurance, patient can not afford harrison. I will rx cortisporin HC otic documented in this encounter Plan of Treatment Not on file documented as of this encounter Visit Diagnoses Not on filedocumented in this encounter Additional Health Concerns Assessment Noted Time PHQ-9 Depression Total Score: 12 025 2:16 PM EST documented as of this encounter Care Teams Access Control Specialist Relationship Specialty Start Date End Date Gretchen Duong MD [address] [place] [address] PCP - General Family Medicine 07/02/21 documented as of this encounter
--- OUTSIDE RECORDS SUMMARY | 2024-12-13 13:42 | XMS_ITS | Encounter Summary ---
Author Organization [employer] Address [address] [facility] [address] [place] [address] Care Team Providers Care Cane Pusher Name Role Phone Gretchen Duong MD Primary Care Provider [phone] Reason for Visit * Reason Onset Date Comments Prior Authorization 11/28/2024 Encounter Details Date Type Department Care Team ([facility] Contact Info) Description 11/28/2024 Telephone [facility] MEDICINE [address] [place] [address] Gretchen Duong MD [address] [place] [address] Prior Authorization Social History Tobacco Use Types Packs/Day Years [...] encounter Miscellaneous Notes * Telephone Encounter - Dmitriy Rankin RN - 11/28/2024 10:40 AM EST PA request received for ciprofloxacin-dexAMETHasone suspension. TC placed to pharmacy who reports that Cortisporin HC suspension is generally covered by insurance. Please review and advise. Providersnote from 11/22/24 is not yet finished. Message sent to covering for review and advise. documented in this encounter Plan of Treatment Not on file documented as of this encounter Visit Diagnoses Not on filedocumented in this encounter Additional Health Concerns Assessment Noted Time PHQ-9 Depression Total Score: 12 025 2:16 PM EST documented as of this encounter Care Teams Cane Pusher Relationship Specialty Start Date End Date Gretchen Duong MD [address] [place] [address] PCP - General Family Medicine 07/02/21 documented as of this encounter
--- OUTSIDE RECORDS SUMMARY | 2024-12-13 13:42 | XMS_ITS | Encounter Summary ---
Author Organization [employer] Address [address] [place] [address] Care Team Providers Care Air Pollution Specialist Name Role Phone Gretchen Duong MD Primary Care Provider [phone] Encounter Details Date Type Department Care Team ([facility] st Contact Info) Description 11/25/2024 Orders Only [facility] MEDICINE [address] [place] [address] Gretchen Duong MD [address] [place] [address] Social History Tobacco Use Types Packs/Day Years [...] documented as of this encounter Care Teams Air Pollution Specialist Relationship Specialty Start Date End Date Gretchen Duong MD [address] [place] [address] PCP - General Family Medicine 07/02/21 documented as of this encounter
--- OUTSIDE RECORDS SUMMARY | 2024-12-13 13:42 | XMS_ITS | Encounter Summary ---
Author Organization [employer] Address [address] [facility] [address] [place] [address] Care Team Providers Care Color Receiver Name Role Phone Gretchen Duong MD Primary Care Provider [phone] Encounter Details Date Type Department Care Team ([facility] st Contact Info) Description 12/13/2024 Orders Only [facility] External Provider, [facility] Social History Tobacco Use Types Packs/Day Years [...] Procedure Name Priority Date/Time Associated Diagnosis Comments STREP A NUCLEIC ACID Routine 12/13/2024 11:20 AM EST SARS COV2/INFLUENZA A/B AND RSV RNA QL NAAT Routine 12/13/2024 11:20 AM EST XR CHEST 2 VIEWS Routine 12/13/2024 11:1 1 AM EST documented in this encounter Results * SARS-CoV-2 RNA, Influenza A/B, and RSV RNA, Ql NAAT (12/13/2024 11:20 AM EST) Influenza A PCR NEGATIVE Negative [facility] Influenza B PCR NEGATIVE Negative [facility] Resp Syncy Virus RNA Qual PCR NEGATIVE Negative [facility] SARS COV2 PCR NEGATIVE Negative [facility] Comment:All test results mus t [...] use by authorized laboratories.Testing performed on the [employer] GeneXpert utilizingreal-time RT-PCR.All SARS CoV2 and positive influenza A/B results arereported to [facility]. 12/13/2024 11:2 0 AM EST 12/13/2024 11:31 AM EST Generic External Data Provider LAB MICROBIOLOGY - GENERAL ORDERABLES Final Result Performing Organization Address [facility] de Phone Number [facility] [address] [place] [address] [phone] * Strep A Nucleic Acid (12/13/2024 11:20 AM EST) IDNOW SERIAL# [id number] [facility] Strep A Nucleic Acid Negative Negative [facility] Comment:All test results mus t be correlated with clinical findings.This test has not been evaluated for monitoring treatment ofinfection.Additional follow-up testing using the culture method isrequired if the result is negative and clinical symptomspersist, or in the event of an acute rheumatic feveroutbreak. 12/13/2024 11:2 0 AM EST 12/13/2024 11:31 AM EST Generic External Data Provider LAB MICROBIOLOGY - GENERAL ORDERABLES Final Result Performing Organization Address [facility] de Phone Number [facility] [address] [place] [address] [phone] * XR Chest 2 Views (12/13/2024 11:11 AM EST) Anatomical Region Laterality Modality Chest Radiographic Rachael ging 12/13/2024 11:1 1 AM EST Narrative 12/13/2024 11:47 AM EST ? [facility] ?[address] ?[place] [address] ?XRay Report ? Signed ? Patient: Jesus Stacia,Eddie ?MR#: [id number] ?? [id number] ? : 1985 ?Acct:[id number] ? Age/Sex: 39 / M ?ADM Date: 01/31/25 ? Loc: HO.ED ? Attending Dr: ? Ordering Physician: Larissa Richard ?? Date of Service: 12/13/24 ?? Procedure(s): XR chest 2V ?? Accession Number(s): [id number] ? cc: [facility]; Larissa Richard ? EXAMINATION: ?? XR CHEST [...] DD/ 1111 ? TD/TT: 12/13/24 1139 ? Senior Buyer Planner: ? Procedure Note Donotister, Image - 12/13/2024 [place] [address] XRay Report Signed Patient: Washington Conrad#: [id number] : 1985Acct:[id number] Age/Sex: 39 / MADM Date: 12/13/24 Loc: HO.ED Attending Dr: Ordering Physician: Larissa Richard Date of Service: 12/13/24 Procedure(s): XR chest 2V Accession Number(s): [id number] cc: [facility]; Larissa Richard EXAMINATION: XR CHEST CLINICAL INFORMATION: [...] 12/13/24 1144 DD/ 1111 TD/TT: 12/13/24 1139 Senior Buyer Planner: [facility] External Provider IMG XR PROCEDURES Final Result documented in this encounter Visit Diagnoses Not on filedocumented in this encounter Additional Health Concerns Assessment Noted Time PHQ-9 Depression Total Score: 12 025 2:16 PM EST documented as of this encounter Care Teams Color Receiver Relationship Specialty Start Date End Date Gretchen Duong MD [address] [place] [address] PCP - General Family Medicine 07/02/21 documented as of this encounter
== END 2024-12-13 13:37 | disposition home or self-care (01) ==
LOC: HO.ED 13:33
PROVIDERS: Physician Assistant; Absent Provider General Practice; Emergency Provider Emergency Medicine
DX: J06.9 Acute upper respiratory infection, unspecified (principal); R05.9 Cough, unspecified; R50.9 Fever, unspecified; J02.9 Acute pharyngitis, unspecified; M79.10 Myalgia, unspecified site; Z03.818 Encounter for observation for suspected exposure to other biological agents ruled out
CPT/HCPCS: 0241U; 71046; 87651; 99281; 99283

== ENCOUNTER → 2024-12-13 11:11 | Outpatient (BNV) | payer MEDICAID, SELFPAY | PROVIDERS: Visit Provider Radiology Diagnostic Radiology | DX: R05.9 Cough, unspecified (principal) | CPT/HCPCS: 71046 ==

== ENCOUNTER 2025-05-27 19:24 | Emergency (ER) | payer MEDICAID, SELFPAY ==
--- NOTE | ~2025-05-27 | XR_ITS ---
CLINICAL HISTORY: pain s p heavy lifting Right shoulder three views Comparison: None provided Findings: No acute fracture or dislocation identified. No acute focal bony abnormality. No radiopaque foreign body noted. Impression: No acute bony abnormality This document has been electronically signed by: Patrick Ochoa MD on 05/27/2025 20:17:38
[2025-05-27 19:30] VITALS: BP 121/79; PULSE 73; RESP 14; TEMP 36.1; O2SAT 98; BMI 33.4
--- NOTE | 2025-05-27 19:33 | ED_ITS ---
HPI - General Adult General Chief complaint: Extremity Injury, Upper Stated complaint: rt shoulder pain/can't raise his arm Time Seen by Provider: 05/27/25 22:04 Source: patient Mode of arrival: ambulatory Limitations: language barrier (Mill Attendant service was utilized) History of Present Illness ED Provider: Milton FOFANA HPI narrative: The patient is a 39-year-old male presenting to the ED for evaluation of right shoulder pain which began at approximately 14:30 while at work. The patient reports he attempted to lift a heavy object up onto his shoulder when he felt a snapping/popping sensation in the superior posterior right shoulder along the trapezius muscle. The patient reports since that time he has had severe pain with any attempted active or passive abduction or other movement of the arm. Patient denies distal paresthesias, fall to the ground, or blunt trauma. The patient denies history of right shoulder pain prior to the incident today. The patient reports he took ibuprofen at approximately 14:30 and was administered Tylenol upon arrival in the ED. Patient denies any significant improvement in symptoms following these interventions. Related Data Previous Rx's ?Medication ?Instructions ?Recorded erythromycin 5 mg/gram (0.5 %) eye 0.5 inch ophthalmic (eye) BID 7 06/15/21 ointment days #3.5 grams albuterol sulfate 90 mcg/actuation 2 puff inhalation Q 6H PRN 11/18/21 aerosol inhaler (ProAir HFA) shortness of breath or wh eezing #6.7 grams oxycodone 5 mg tablet 5 mg PO Q8H PRN pain #10 tab s 07/25/22 cyclobenzaprine 10 mg tablet 10 mg PO TID PRN muscle s pasm #14 06/04/23 tabs ketorolac 10 mg tablet 10 mg PO TID PRN pain 5 days #15 06/04/23 tabs omeprazole 40 mg capsule,delayed 40 mg PO DAILY #15 ca ps 09/12/23 release bbgzjxqkou-kyxfyokjhgsfq-yigeyrov 1 cap PO TID PRN lucas n #14 caps 11/27/23 50 mg-300 mg-40 mg capsule (Fioricet) acetaminophen 500 mg capsule 1,000 mg (2 x 500 mg) PO .q8 PRN 05/27/25 fever or pain #30 caps ibuprofen 600 mg tablet 600 mg PO Q8H PRN fever or p ain 05/27/25 #30 tabs oxycodone 5 mg tablet 5 mg PO Q8H PRN pain, severe #10 05/27/25 tabs Allergies Allergy/AdvReac Type Severity Reaction Status Date / Time No Known Allergies Allergy Verified 05/27/25 19:35 Review of Systems Review of Systems: Yes all other systems are reviewed and are negative PMFSH Past Medical History Medical History No known health problems Social History Social History Alcohol intake: current Alcohol intake frequency: holidays/special occasions only Patient Tobacco Use Status: Never used Tobacco Smoked in Last 30 Days: No Use of substances other than those prescribed or required for medical reasons: No Advance Directives: No Advance Directives Information Provided: No Do you have a plan to hurt others: No Plan Physical Exam ED Vital Signs: Vital Signs - 24 hr 05/27/25 19:30 05/27/25 23:12 Temperature 97.0 F 97.0 F Pulse Rate 73 73 Respiratory Rate 14 14 Blood Pressure 121/79 121/79 Pulse Oximetry 98 98 Oxygen Delivery Method Room Air Room Air BMI result Body Mass Index 33.4 CONSTITUTIONAL: The patient appears in obvious discomfort, otherwise non-toxic, well nourished and in no acute distress. Vital signs as documented. HEAD: Atraumatic, normocephalic. EYES: EOMs grossly intact, pupils equal, conjunctiva clear, no exudate. ENT: Nares patent, no discharge. Airway patent, no audible stridor, visible mucosa is pink and moist without noted lesions. NECK: trachea is midline, no obvious masses or gross abnormalities. CHEST: Symmetric movement, normal appearance. LUNGS: Non-labored work of breathing. CARDIAC: No evidence of hypoperfusion. ABDOMEN: Nondistended, no obvious injury. : Deferred. EXTREMITIES: Patient reports severe pain with attempted passive or active abduction, or lateral rotation of the right shoulder. There is no bony tenderness or crepitus. Patient reports tenderness to palpation of the lateral right trapezius. Distal CSM is intact, 2+ radial pulse, no pallor or pain out of proportion. Moves all or other extremities spontaneously without reported pain. No obvious injury or deformity noted, specifically no anterior fullness or deltoid step-off. NEURO: Alert and oriented x3, CN II-XII appear grossly intact. Cerebellar Functioning grossly intact. Speech clear and appropriate. SKIN: Warm, dry, color appropriate. No rashes or lesions noted. Course Course Course Narrative: 05/27/251932 BRIGIDO Dior This is a Rapid Medical Examination (RME) performed by Chey Ramirez PA-C in triage. Full HPI, ROS, assessment and treatment plan per primary provider in the Main ED. Hx: 39 yo M here for eval of R shoulder pain after lifting a heavy box at work. feels like he tore his muscle. unable to life arm d/t pain. trialed advil without relief. PE/vitals: Right shoulder range of motion limited due to pain. Tender to palpation over right trapezius and right deltoid Plan: xrs Medications Administered Discontinued Medications Generic Name Dose Route Start Last Admin Trade Name Freq PRN Reason Stop Dose Admin Acetaminophen 975 mg 05/27/25 21:34 05/27/25 21:35 Acetaminophen 325 Mg Tablet PO 05/27/25 21:35 975 mg ONCE ONE Administration Ketorolac Tromethamine 30 mg 05/27/25 22:37 05/27/25 22:57 Ketorolac Tromethamine 30 Mg/Ml Vial IM 05/27/25 22:38 30 mg ONCE ONE Administration Lidocaine 1 patch 05/27/25 22:37 05/27/25 22:57 Lidocaine 4 % Patch Adh..Patch TRANSDERMA 05/27/25 22:38 1 patch ONCE ONE Administration Protocol Oxycodone HCl 5 mg 05/27/25 22:37 05/27/25 22:57 Oxycodone Hcl Immed Release 5 Mg Tablet PO 05/27/25 22:38 5 mg ONCE ONE Administration Medical Decision Making Medical Decision Making MDM Narrative: 10:59 PM 05/27/2025 (Chey FOFANA): The patient is a 39-year-old male presenting to the ED for evaluation of acute onset right shoulder pain when lifting a heavy box at work at approximately 14:30 today. The patient in the ED appears uncomfortable but in no acute distress, exam is consistent with musculoskeletal strain. X-ray performed shows no evidence of acute fracture, dislocation, or separation. The patient reports only minimal improvement following treatment with ibuprofen and Tylenol. The patient will be treated with oxycodone, lidocaine patch, and Toradol as he last had ibuprofen at 14:30. The patient will be discharged to follow up with PCP for re-evaluation and additional management if no improvement in the next 3-5 days. A work note will be provided. Radiology Impression Discussion of test interpretation with radiology: I have reviewed the radiologist's reading. Radiologist Impression: CLINICAL HISTORY: pain s p heavy lifting Right shoulder three views Comparison: None provided Findings: No acute fracture or dislocation identified. No acute focal bony abnormality. No radiopaque foreign body noted. Impression: No acute bony abnormality This document has been electronically signed by: Patrick Ochoa MD on 05/27/2025 20:17:38 Prescription Management I considered prescription management with: Pain Medication Discharge Plan Discharge Clinical Impression: Right shoulder strain Patient Disposition: Home, Self-Care Instructions: Muscle Strain (ED), How to Use a Sling (ED), Cold Compress or Soak (ED) Additional Instructions: Thank you for choosing [facility]'s Emergency Department for your care today. Thankfully your x-ray today shows no evidence of an acute fracture of your shoulder. At this time there is no evidence of an acute process requiring admission to the hospital or continued ED observation, and it is safe to discharge you home. Your pain is likely secondary to a strain of the muscles in your right shoulder from lifting the heavy object at work. You should take alternating (staggered) doses of ibuprofen 600mg and Tylenol 1000mg every 4 hours as needed for any additional pain. Please rest the injured area, and apply ice for 20 minutes every hour. As a part of your care plan, you have also been prescribed an opiate based pain medication call oxycodone. Please take this medication only for severe pain that is not relieved by ibuprofen and/or Tylenol. Opiate based medications have a high risk of unintentional addiction and abuse. Take this medication only as directed and only if absolutely necessary. This medicine can make you drowsy, you are not allowed to drive, operate heavy machinery, or be the sole care provider for children while taking this medication. We have treated you with a lidocaine patch, if you find this provides you significant relief additional patches can be purchased at any local pharmacy without a prescription. Please follow up with your primary care physician for re-evaluation, additional management of your symptoms, and continued preventative care. If you do not have a primary care physician, please call the [facility] at [phone] to establish a new primary care physician. While waiting to establish your new primary care physician, you can call our Walk-in [facility] at [phone] for non-emergency needs. Please return to the emergency department if you develop a severe or sudden change in your symptoms, a fever over 100.4 that does not improve with Tylenol or Ibuprofen, recurrent vomiting, or any other new or worsening symptoms or concerns. Prescriptions: New oxycodone 5 mg tablet 5 mg PO Q8H PRN (Reason: pain, severe) Qty: 10 0RF Rx Instructions: Partial Fill upon patient request. ibuprofen 600 mg tablet 600 mg PO Q8H PRN (Reason: fever or pain) Qty: 30 0RF acetaminophen 500 mg capsule 1,000 mg PO .q8 PRN (Reason: fever or pain) Qty: 30 0RF No Action erythromycin 5 mg/gram (0.5 %) ointment 0.5 inch ophthalmic (eye) BID 7 Days Qty: 3.5 0RF oxycodone 5 mg tablet 5 mg PO Q8H PRN (Reason: pain) Qty: 10 0RF Rx Instructions: Partial Fill upon patient request. albuterol sulfate [ProAir HFA] 90 mcg/actuation HFA aerosol inhaler 2 puff inhalation Q6H PRN (Reason: shortness of breath or wheezing) Qty: 6.7 0RF omeprazole 40 mg capsule,delayed release(DR/EC) 40 mg PO DAILY Qty: 15 0RF ketorolac 10 mg tablet 10 mg PO TID PRN (Reason: pain) 5 Days Qty: 15 0RF Rx Instructions: Received 1st dose intramuscularly in the emergency department and tolerated well. cyclobenzaprine 10 mg tablet 10 mg PO TID PRN (Reason: muscle spasm) Qty: 14 0RF merrblwgbq-cpjjrghuilrrd-hujp [Fioricet] 50-300-40 mg capsule 1 cap PO TID PRN (Reason: pain) Qty: 14 0RF Referrals: [place],[facility] [Primary Care Provider, Medical] Clinical Impression: Right shoulder strain Stand Alone Forms: Work/School Release Interventions: ED Discharge Assessment Last Done: 05/27/25 23:12 Print Language: Chinese
[2025-05-27] MEDS: oxyCODONE HCl Immed Release 5 MG TABLET PO (22:57)
[2025-05-27] MEDS: Lidocaine 4 % Patch ADH..PATCH 1 PATCH TRANSDERMA (22:57)
[2025-05-27 23:12] VITALS: BP 121/79; PULSE 73; RESP 14; TEMP 36.1; O2SAT 98
[2025-05-27 23:24] VITALS: BP 121/79; PULSE 73; RESP 14; TEMP 36.1; O2SAT 98
== END 2025-05-27 23:25 | disposition home or self-care (01) ==
PROVIDERS: Emergency Provider Emergency Medicine
DX: S46.911A Strain of unspecified muscle, fascia and tendon at shoulder and upper arm level, right arm, initial encounter (principal); X50.0XXA Overexertion from strenuous movement or load, initial encounter; Y93.9 Activity, unspecified; Y92.9 Unspecified place or not applicable; Y99.9 Unspecified external cause status; M25.511 Pain in right shoulder
CPT/HCPCS: 73030; 96372; 99283; 99284; J1885

== ENCOUNTER → 2025-05-27 19:35 | Outpatient (BNV) | payer MEDICAID, SELFPAY | PROVIDERS: Visit Provider Radiology Diagnostic Radiology | DX: M25.511 Pain in right shoulder (principal) | CPT/HCPCS: 73030 ==

== ENCOUNTER 2025-10-15 19:00 | Emergency (ER) | payer MEDICAID, SELFPAY ==
--- NOTE | ~2025-10-15 | CT_ITS ---
CLINICAL HISTORY: headache CT head without contrast Comparison: CT/SR - CT HEAD WITHOUT IV CONTRAST - 06/04/24 20:03 EDT Findings: BRAIN: No acute infarct, hemorrhage, or mass effect. No abnormal atrophy. CSF SPACES: No hydrocephalus or effacement of basal cisterns. SKULL: No calvarial fracture. SINUSES: No significant mucosal thickening or effusion on limited views. ORBITS: Limited views are unremarkable. OTHER: Negative. IMPRESSION: 1. No acute intracranial findings. This document has been electronically signed by: Berenice Jones MD on 10/15/2025 20:31:11
[2025-10-15 19:34] VITALS: BP 129/75; PULSE 79; RESP 20; TEMP 36.8; O2SAT 98; BMI 34.3
--- NOTE | 2025-10-15 19:37 | ED.GENADULT ---
HPI - General Adult General Chief complaint: General Medical Stated complaint: headache Time Seen by Provider: 10/15/25 22:38 History of Present Illness ED Provider: davey HPI narrative: 39 year old male with mild, gradual onset, generalized headache of several days. Denies head trauma. Feels mild, generalized malaise and myalgias. Denies a measured fever. No sore throat. Feels like his right ear was hurting. No decreased hearing or tinnitus. No overt neck stiffness. Denies nausea, vomiting, abdominal pain, difficulty breathing, hemoptysis, skin rash, recent travel or abnormal foods. He's otherwise healthy, takes no meds, non-smoker, no drug use. Related Data Previous Rx's ?Medication ?Instructions ?Recorded erythromycin 5 mg/gram (0.5 %) eye 0.5 inch ophthalmic (eye) BID 7 06/15/21 ointment days #3.5 grams albuterol sulfate 90 mcg/actuation 2 puff inhalation Q6H PRN 11/18/21 aerosol inhaler (ProAir HFA) shortness of breath or wheezing #6.7 grams oxycodone 5 mg tablet 5 mg PO Q8H PRN pain #10 tabs 07/25/22 cyclobenzaprine 10 mg tablet 10 mg PO TID PRN muscle spasm #14 06/04/23 tabs ketorolac 10 mg tablet 10 mg PO TID PRN pain 5 days #15 06/04/23 tabs omeprazole 40 mg capsule,delayed 40 mg PO DAILY #15 caps 09/12/23 release exoyfgbcsw-adenywslghkme-hvhvfvhu 1 cap PO TID PRN pain #14 caps 11/27/23 50 mg-300 mg-40 mg capsule (Fioricet) acetaminophen 500 mg capsule 1,000 mg (2 x 500 mg) PO .q8 PRN 05/27/25 fever or pain #30 caps ibuprofen 600 mg tablet 600 mg PO Q8H PRN fever or pain 05/27/25 #30 tabs oxycodone 5 mg tablet 5 mg PO Q8H PRN pain, severe #10 05/27/25 tabs Allergies Allergy/AdvReac Type Severity Reaction Status Date / Time No Known Allergies Allergy Verified 10/15/25 19:36 [facility] Past Medical History Medical History No known health problems Social History Social History Alcohol intake: never Patient Tobacco Use Status: Never used Tobacco Smoked in Last 30 Days: No Use of substances other than those prescribed or required for medical reasons: No Advance Directives: No Advance Directives Information Provided: Yes Do you have a plan to hurt others: No Plan Physical Exam ED Exam Exam: EXAM: Gen: Alert, awake, well appearing, well hydrated. Head: Atraumatic Eyes: Anicteric, Normal conjunctiva. ENT: Moist mucosa, no pallor. Neck: Supple. Respiratory: Breathing comfortably, No distress.Clear to auscultation bilaterally, symmetric chest expansion, No wheeze, rales, ronchi. Cardiovascular: Regular rate and rhythm. No murmurs or rub. Well perfused periphery, warm extremities. No edema. Abdominal: Soft, no objective distension. No palpable masses or obvious organomegaly. No focal tenderness, no guarding, no rebound tenderness or other peritoneal findings. : No flank tenderness. Neuro: Alert. Gross movement of all extremities intact. Vital signs: See flowsheet Vital Signs: Vital Signs - 24 hr 10/15/25 19:34 10/15/25 23:18 Temperature 98.2 F 97.9 F Pulse Rate 79 74 Respiratory Rate 20 15 Blood Pressure 129/75 120/80 Pulse Oximetry 98 96 Oxygen Delivery Method Room Air Room Air BMI result Body Mass Index 34.3 Course Course Course Narrative: RME: 39 year male presents to ED for headache since Monday without any fever chills or neck stiffness. Patient states unable to open eyes in the morning. Labs head CT scan SARs ordered Medications Administered Discontinued Medications Generic Name Dose Route Start Last Admin Trade Name Freq PRN Reason Stop Dose Admin Dexamethasone 6 mg 10/16/25 00:39 10/16/25 01:10 Dexamethasone 6 Mg Tablet PO 10/16/25 00:40 6 mg ONCE ONE Administration Ibuprofen 800 mg 10/16/25 00:39 10/16/25 01:10 Ibuprofen 800 Mg Tablet PO 10/16/25 00:40 800 mg ONCE ONE Administration Metoclopramide HCl 10 mg 10/16/25 00:39 10/16/25 01:10 Metoclopramide Hcl 10 Mg Tablet PO 10/16/25 00:40 10 mg ONCE ONE Administration Medical Decision Making Medical Decision Making [facility] Narrative: 39 year old male with generalized headache and myalgias sounds mostly suggestive of a viral syndrome. He looks mildly uncomfortable but certainly not meningitic or toxic. His workup thus far is reassuring. Significant relief with pain medication could be a tension headache, viral syndrome, migraine, or dehydration. Lab Data [facility] Lab Attestation statement: I reviewed the patient's lab results. 10/15/25 19:47 10/15/25 19:47 Labs: Lab Results 10/15/25 10/15/25 Range/Units 19:47 19:48 WBC 6.8 (4.8-10.8) X10*3/uL RBC 5.00 (4.60-5.80) X10*6/uL Hgb 14.4 (14.0-18.0) g/dl Hct 43.3 (42.0-52.0) % MCV 86.6 (80.0-98.0) fL MCH 28.8 (27.0-33.0) pg MCHC 33.3 (31.0-36.0) g/dl RDW 12.6 (11.0-16.0) % Plt Count 267 (160-400) X10*3/uL MPV 11.2 (9.4-12.4) fL Immature Gran % (Auto) 0.6 H (0.0-0.4) % Neut % (Auto) 56.3 (45-73) % Lymph % (Auto) 33.0 (20-40) % [place] % (Auto) 8.8 (2-11) % Eos % (Auto) 0.9 (0-4) % Baso % (Auto) 0.4 (0-2) % Lymph # (Auto) 2.3 (1.2-4.9) X10*3/uL [place] # (Auto) 0.6 (0.1-1.2) X10*3/uL Eos # (Auto) 0.1 (0.0-0.4) X10*3/uL Baso # (Auto) 0.0 (0.0-0.2) X10*3/uL Abs Immat Gran (auto) 0.04 H (0.00-0.03) X10*3/uL Absolute Neuts (auto) 3.9 (2.0-8.3) x10*3/uL Absolute Nucleated RBC 0.000 (0.0-0.012) X10*3/uL Nucleated RBC % (auto) 0.0 (0.0-0.2) /100WBC Sodium 138 (135-145) mmol/L Potassium 4.1 (3.3-5.1) mmol/L Chloride 107 (96-108) mmol/L Carbon Dioxide 22 (22-29) mmol/L Anion Gap 13 (12-20) BUN 17 H (9-16) mg/dL Creatinine 1.10 (0.5-1.4) mg/dL Estim Creat Clear Calc 92.4 Estimated GFR > 60 Random Glucose 104 (60-115) mg/dL Calcium 8.9 (8.4-10.2) mg/dL Total Bilirubin 0.2 (0.0-1.0) mg/dL AST 33 (5-37) U/L ALT 72 H (0-40) U/L Alkaline Phosphatase 70 (39-117) U/L Total Protein 7.4 (6.5-8.0) g/dL Albumin 4.4 (3.5-5.0) g/dL Monoscreen Negative (Negative) Influenza Type A (PCR) NEGATIVE (Negative) Influenza Type B (PCR) NEGATIVE (Negative) RSV RNA Qual (PCR) NEGATIVE (Negative) SARS-CoV-2 RNA (RT-PCR) NEGATIVE (Negative) S. pyogenes GrpA RADHA Negative (Negative) Discharge Plan Discharge Clinical Impression: Headache Patient Disposition: Home, Self-Care Instructions: Acute Headache (ED) Additional Instructions: We evaluated today for headache several days of gradual onset. At this time we do not have a clear explanation for your headache but CT of the brain was normal and your physical examination was reassuring generally. For headache becomes severely worse or you develop numbness tingling weakness change in your vision, change in your voice high fevers stiffness of your neck return to the emergency department. Prescriptions: No Action erythromycin 5 mg/gram (0.5 %) ointment 0.5 inch ophthalmic (eye) BID 7 Days Qty: 3.5 0RF oxycodone 5 mg tablet 5 mg PO Q8H PRN (Reason: pain) Qty: 10 0RF Rx Instructions: Partial Fill upon patient request. albuterol sulfate [ProAir HFA] 90 mcg/actuation HFA aerosol inhaler 2 puff inhalation Q6H PRN (Reason: shortness of breath or wheezing) Qty: 6.7 0RF omeprazole 40 mg capsule,delayed release(DR/EC) 40 mg PO DAILY Qty: 15 0RF ketorolac 10 mg tablet 10 mg PO TID PRN (Reason: pain) 5 Days Qty: 15 0RF Rx Instructions: Received 1st dose intramuscularly in the emergency department and tolerated well. cyclobenzaprine 10 mg tablet 10 mg PO TID PRN (Reason: muscle spasm) Qty: 14 0RF vittwkkevh-nopiwzcnwwqwx-vprv [Fioricet] 50-300-40 mg capsule 1 cap PO TID PRN (Reason: pain) Qty: 14 0RF oxycodone 5 mg tablet 5 mg PO Q8H PRN (Reason: pain, severe) Qty: 10 0RF Rx Instructions: Partial Fill upon patient request. ibuprofen 600 mg tablet 600 mg PO Q8H PRN (Reason: fever or pain) Qty: 30 0RF acetaminophen 500 mg capsule 1,000 mg PO .q8 PRN (Reason: fever or pain) Qty: 30 0RF Stand Alone Forms: Work/School Release Interventions: ED Discharge Assessment Last Done: 10/16/25 02:09 Discharge Date/Time: 10/16/25 02:12 Print Language: Swedish
[2025-10-15 20:10] LABS: MANUAL DIFF FLAG NO
[2025-10-15 20:13] LABS: Hematocrit 43.3 % (42.0-52.0); Hemoglobin 14.4 g/dl (14.0-18.0); Imm Gran Abs Auto 0.04 X10*3/uL (0.00-0.03); Imm Gran Pct Auto 0.6 % (0.0-0.4); Lymphocytes Absolute Auto 2.3 X10*3/uL (1.2-4.9); Mean Corpuscular HGB Conc 33.3 g/dl (31.0-36.0); Mean Corpuscular Hemoglobin 28.8 pg (27.0-33.0); Mean Corpuscular Volume 86.6 fL (80.0-98.0); NRBC Abs Auto 0.000 X10*3/uL (0.0-0.012); NRBC Pct Auto 0.0 /100WBC (0.0-0.2); Platelet Count 267 X10*3/uL (160-400); Red Blood Count 5.00 X10*6/uL (4.60-5.80); White Blood Count 6.8 X10*3/uL (4.8-10.8)
[2025-10-15 20:20] LABS: IDNOW Serial# 55D5AD1C
[2025-10-15 20:21] LABS: Strep A Nucleic Acid Negative (Negative)
[2025-10-15 20:27] LABS: Alanine Aminotransferase 72 U/L (0-40); Albumin Level 4.4 g/dL (3.5-5.0); Alkaline Phosphatase 70 U/L (39-117); Anion Gap 13 (12-20); Aspartate Amino Transferase 33 U/L (5-37); Blood Urea Nitrogen 17 mg/dL (9-16); Calcium 8.9 mg/dL (8.4-10.2); Carbon Dioxide 22 mmol/L (22-29); Chloride 107 mmol/L (96-108); Creatinine Clr Calc Pharmacy 92.4; Estimated Glomerular Filt Rate > 60; Potassium 4.1 mmol/L (3.3-5.1); Sodium 138 mmol/L (135-145); Total Protein 7.4 g/dL (6.5-8.0)
[2025-10-15 20:49] LABS: Resp Syncy Virus RNA Qual PCR NEGATIVE (Negative); SARS COV2 PCR INHOUSE NEGATIVE (Negative)
[2025-10-15 23:18] VITALS: BP 120/80; PULSE 74; RESP 15; TEMP 36.6; O2SAT 96
--- OUTSIDE RECORDS SUMMARY | 2025-10-15 23:30 | XMS_ITS | Clinical Summary ---
Author Organization [employer] Address [address] [place] [address] Care Team Providers Care Automation Control Technician Name Role Phone Gretchen Duong MD Primary Care Provider [phone] Allergies No known active allergies Medications * This document contains information received from the source organization and may not represent a complete record from that organization. omeprazole OTC (PriLOSEC OTC) 20 MG EC tablet Take 1 tablet (20 mg) by mouth before breakfast. Do not crush, chew, or split. 90 tablet 3 09/08/2025 Active Active Problems Problem Noted Date Diagnosed Date Class 1 obesity with body ma ss index (BMI) of 34.0 to 34.9 in adult 11/28/2024 Anxiety 11/22/2024 Moderate major depression (CMS/HCC) 11/22/2024 Gastritis 07/02/2021 Encounters * This document contains information received from the source organization and may not represent a complete record from that organization. Date Type Department Care Team Description 09/08/2025 3:15 PM EDT Office Visit [facility] [address] [place] [address] Gretchen Duong MD Gastroesophageal reflux disease without esophagitis (Primary Dx); Left upper quadrant abdominal pain; Ingrowing toenail; Encounter for immunization; Encounter for vaccination; Mood disorder (CMS/HCC) 09/08/2025 Travel 09/05/2025 Telephone [facility] [address], [place] [phone] Gretchen Duong MD chart prep from Last 3 Months Immunizations Immunization Administration Dates Next Due Hep B, adult 05/28/2019 Influenza injectable quadrivalent preservative f ree 01/26/2024 Influenza, seasonal, injectable, preservative fr ee 09/08/2025,11/22/2024 Pfizer Covid-19 Vaccine 12+ 09/08/2025, Pneumococcal Conjugate PCV 20 09/08/2025 TD (adult), 2 Lf tetanus tox oid, [...] Answer Date Recorded Patient Health Questionnaire-9 Score 11 09/08/2025 Patient Health Questionnaire-9 Score 11 09/08/2025 Last PHQ-9: Questionnaire Data Not on file 1 Housing Stability Answer Date Recorded What is [...] Answer Date Recorded Patient Health Questionnaire-2 Score 3 09/08/2025 Internet Access Answer Date Recorded Internet Access [...] Sign Reading Time Taken Comments Blood Pressure 130/90 09/08/2025 3:31 PM EDT Pulse 71 09/08/2025 3:31 PM EDT Temperature 36.6 C (97.8 F) 09/08/2025 3:31 PM EDT Respiratory Rate 16 09/08/2025 3:31 PM EDT Oxygen Saturation 98% 09/08/2025 3:31 PM EDT Inhaled Oxygen Concentration - - Weight 93.6 kg (206 lb 6.4 oz) 09/08/2025 3:31 P M EDT Height 162.6 cm (5' 4 ) 09/08/2025 3:31 PM EDT Body Mass Index 35.43 09/08/2025 3:31 PM EDT Plan of Treatment Health Maintenance Due Date Last Done Comments HPV Vaccines (1 - Male 3-dos e series) 2001 Hepatitis B Vaccines (2 of 3 - 19+ 3-dose series) 06/25/2019 05/28/2019 SDOH Screening 11/14/2025 11/14/2024 Depression Monitoring 03/09/2026 09/08/2025 , 09/08/2025 Alcohol/Substance Use Screening 09/08/2026 09/08/2025 Disability Screening 09/08/2026 09/08/2025 Tobacco Screening 09/08/2026 09/08/2025 Family Planning (PISQ) 09/09/2026 09/09/2025 DTaP/Tdap/Td Vaccines (3 - T d or Tdap) 08/29/2029 08/29/2019, 03/26/2019 Lipid Panel 11/22/2029 11/22/2024 Zoster Vaccines (1 of 2) 2036 RSV Patients and Patients Aged 60 years or older (1 - 1-dose 75+ series) 2061 HIV Screening Completed 11/22/2024, 07/02/2021 Hepatitis C Screening Completed 11/22/2024 , 07/02/2021 COVID-19 Vaccine Completed 09/08/2025, 01/26/2024, 03/17/2021 Influenza Vaccine Completed 09/08/2025, 11/22/2024, 01/26/2024 Pneumococcal Vaccine: Pediatrics (0 to 5 Years) and At-Risk Patients (6 to 49) Years Completed 09/08/2025 HIB Vaccines Aged Out No longer eligi ble based on patient's age to complete this topic Hepatitis A Vaccines Aged Out No long er eligible based on patient's age to complete this topic IPV Vaccines Aged Out No longer eligi ble based on patient's age to complete this topic Meningococcal B Vaccine Aged Out No l onger eligible based on patient's age to complete [...] Routine screening for STI (sexually transmitted infection) LIPID PANEL, STANDARD Routine 11/22/2024 3:06 PM EST Class 1 obesity with body mass index (BMI) of 34.0 to 34.9 in adult, unspecified obesity type, unspecified whether serious comorbidity present from Last 3 Months or Most Recently Relevant to Health Maintenance Results * Hepatitis C Antibody with Reflex to HCV, RNA, Quantitative, Real-Time PCR (11/22/2024 3:06 PM EST) Hepatitis C Antibody Nonreactive Nonreactive [facility] Comment:Antibodies to HCV no t detected; does not exclude early acuteHCV infection. Blood Venous blood specimen / Unknown 11/22/2024 3:06 PM EST 11/22/2024 4:04 PM EST Gretchen Duong MD LAB BLOOD ORDERABLES Final Res ult Performing Organization Address [facility] Co de Phone Number [facility] [address] [place] [phone] * HIV-1/2 Antigen and Antibodies, Fourth Generation, with Reflexes (11/22/2024 3:06 PM EST) HIV AB/AG Nonreactive Nonreactive [facility] Comment:HIV-1 p24 Ag and/or HIV-1/HIV-2 Ab not detected.A test result that is nonreactive does not exclude thepossibility of exposure to or infection with HIV-1 and/orHIV-2. Nonreactive results in this assay for individualswith prior exposure to HIV-1 and/or HIV-2 may be due toantigen and antibody levels that are below the limit ofdetection of this assay.The GoWarniSuperbac HIV Ag/Ab Combo assay result andsupplemental assay results should be interpreted inconjunction with the patient's clinical presentation,history and other laboratory results. If the results areinconsistent with clinical evidence, additional testing issuggested to confirm the result. Blood Venous blood specimen / Unknown 11/22/2024 3:06 PM EST 11/22/2024 4:04 PM EST Gretchen Duong MD LAB BLOOD ORDERABLES Final Res ult Performing Organization Address [facility] Co de Phone Number [facility] [address] [place] [address] [phone] * (ABNORMAL) Lipid Panel, Standard (11/22/2024 3:06 PM EST) Triglycerides 60 <150 mg/dL [facility] Comment:Desirable Triglyceri de: less than 150 mg/dLBorderline High Triglyceride 150-199 mg/dLHigh Triglyceride: 200-499 mg/dLVery High Triglyceride: greater than or equal to 5OO mg/dL Cholesterol 190 <200 mg/dL [facility] Comment:Desirable Cholestero l: less than 200 mg/dLBorderline High Cholesterol: 200-239 mg/dLHigh Cholesterol: greater than 239 mg/dL LDL Cholesterol Calculated 123(H) <100 mg/dL [facility] Comment:Desirable LDL: less than 100 mg/dLNear Optimal/Above Optimal LDL: 110- 129 mg/dLBorderline High LDL: 130-159 mg/dLHigh LDL: 160-189 mg/dLVery High LDL: greater than or equal to 190 mg/dL HDL Cholesterol 55 >40 mg/dL [facility] Comment:Desirable HDL: great er than 40 mg/dL Note: This HDL assay may give artificially low results in patients with liver disease. Blood Venous blood specimen / Unknown 11/22/2024 3:06 PM EST 11/22/2024 4:04 PM EST us Gretchen Duong MD LAB BLOOD ORDERABLES Final Res ult [facility] [address] [place] [phone] from Last 3 Months or Most Recently Relevant to Health Maintenance Insurance [facility] C3 HSN PARTIAL Care Teams Automation Control Technician Relationship Specialty Start Date End Date Gretchen Duong MD [address] [place] [phone] PCP - General Family Medicine 07/02/21
--- OUTSIDE RECORDS SUMMARY | 2025-10-15 23:30 | XMS_ITS | Encounter Summary ---
Author Organization [employer] Address [address] [facility] [address] [place] [address] Care Team Providers Care Ruby On Rails Engineer Name Role Phone Gretchen Duong MD Primary Care Provider [phone] Encounter Details Date Type Department Care Team ([facility] st Contact Info) Description 11/25/2024 Orders Only [facility] [address] [place] [address] Gretchen Duong MD [address] [place] [address] Social History Tobacco Use Types Packs/Day Years [...] documented as of this encounter Care Teams Ruby On Rails Engineer Relationship Specialty Start Date End Date Gretchen Duong MD [address] [place] [address] PCP - General Family Medicine 07/02/21 documented as of this encounter
[2025-10-16 02:09] VITALS: BP 135/82; PULSE 72; RESP 16; TEMP 36.5; O2SAT 96
== END 2025-10-16 02:12 | disposition home or self-care (01) ==
PROVIDERS: Physician Assistant; Emergency Provider Emergency Medicine
DX: R51.9 Headache, unspecified (principal); R53.81 Other malaise
CPT/HCPCS: 36415; 70450; 80053; 85025; 86308; 87637; 87651; 99284; J8540

== ENCOUNTER → 2025-10-15 19:36 | Outpatient (BNV) | payer MEDICAID, SELFPAY | PROVIDERS: Visit Provider Student in an Organized Health Care Education/Training Program | DX: R53.1 Weakness (principal) | CPT/HCPCS: 70450 ==